=== PATIENT | male | born 1970 | race Hispanic/Latino ===

== ENCOUNTER 2019-02-17 20:33 | Emergency (ER) | payer OTHER ==
--- NOTE | 2019-02-17 20:57 | ER ---
Nurse's Notes [facility] Name: Rodolfo Gomez Age: 48 yrs Sex: Male : 1970 Arrival Date: 02/17/2019 Time: 20:37 Bed 6 Private MD: Diagnosis: Muscle spasm of back;Radiculopathy, lumbosacral region Presentation: 02/17 20:53 Presenting complaint: Patient states: 2 days ago at work he hurt his back picking up aa1 some boards. C/O L low back pain that radiates to hip. Transition of care: patient was not received from another setting of care. Onset of symptoms was February 15, 2019. Risk Assessment: Do you want to hurt yourself or someone else? Patient reports no desire to harm self or others. Initial Sepsis Screen: Does the patient meet any 2 criteria? No. Patient's initial sepsis screen is negative. Does the patient have a suspected source of infection? No. Patient's initial sepsis screen is negative. Care prior to arrival: None. 20:53 Method Of Arrival: Ambulatory aa1 20:53 Acuity: VANDANA 4 aa1 Triage Assessment: 20:56 General: Appears in no apparent distress. uncomfortable, Behavior is calm, cooperative, aa1 appropriate for age. Historical: - Allergies: 20:56 No Known Allergies; aa1 - Home Meds: 20:56 None [Active]; aa1 - PMHx: 20:56 Asthma; aa1 - PSHx: 20:56 None; aa1 - Immunization history:: Flu vaccine is not up to date. - Social history:: Smoking status: Patient/guardian denies using tobacco. - Family history:: not pertinent. - Ebola Screening: : No symptoms or risks identified at this time. - Hospitalizations: : No recent hospitalization is reported. Screenin:16 Abuse screen: Denies threats or abuse. Nutritional screening: No deficits noted. ea Tuberculosis screening: No symptoms or risk factors identified. Fall Risk None identified. Assessment: 21:16 General: Appears uncomfortable, Behavior is appropriate for age. Pain: Complains of ea pain in back. Neuro: Level of Consciousness is awake, alert, obeys commands, Oriented to person, place, time, situation. Cardiovascular: Patient's skin is warm and dry. Respiratory: Airway is patent Respiratory effort is even, unlabored, Respiratory pattern is regular, symmetrical. Derm: Skin is pink, warm \T\ dry. Musculoskeletal: Circulation, motion, and sensation intact. 21:28 Reassessment: Patient and/or family updated on plan of care and expected duration. Pain ea level reassessed. Patient is alert, oriented x 3, equal unlabored respirations, skin warm/dry/pink. Discharge instruction given to patient, verbalized the understanding of instruction. Pt left ED ambulatory tolerating well. Vital Signs: 20:56 Weight 90.72 kg; Height 5 ft. 10 in. (177.80 cm); Pain 8/10; aa1 21:00 BP 120 / 81; Pulse 71; Resp 18; Temp 97.6; Pulse Ox 95% on R/A; aa1 20:56 Body Mass Index 28.70 (90.72 kg, 177.80 cm) aa1 ED Course: 20:37 Patient arrived in ED. jg7 20:45 Kan Orozco MD is Attending Physician. rn 20:54 Triage completed. aa1 20:56 Arm band placed on right wrist. aa1 21:15 Leatha Rubio, RUSS is Primary Nurse. ea 21:16 Patient has correct armband on for positive identification. Bed in low position. Call ea light in reach. Side rails up X 1. 21:29 No provider procedures requiring assistance completed. Patient did not have IV access ea during this emergency room visit. Administered Medications: 21:15 Drug: Decadron 10 mg Route: IM; Site: right deltoid; ea 21:27 Follow up: Response: No adverse reaction ea 21:15 Drug: TORadol 30 mg Route: IM; Site: left deltoid; ea 21:27 Follow up: Response: No adverse reaction ea 21:16 Drug: Flexeril 10 mg Route: PO; ea 21:27 Follow up: Response: No adverse reaction ea Outcome: 20:57 Discharge ordered by . rn 21:29 Discharged to home ambulatory. ea 21:29 Condition: stable 21:29 Discharge instructions given to patient, Instructed on discharge instructions, follow up and referral plans. medication usage, Demonstrated understanding of instructions, follow-up care, medications, Prescriptions given X 3. 21:29 Patient left the ED. ea Signatures: Hanh Mcintosh RN RN aa1 Kan Orozco MD MD rn Antunez, Elena, RN RN ea Gutierrez, Jessica jg7 Corrections: (The following items were deleted from the chart) 21:00 21:00 BP 120 / 81; Pulse 71bpm; Resp 18bpm; Pulse Ox 97.6%; Temp 95F; aa1 aa1
--- NOTE | 2019-02-17 20:58 | EDPHYS ---
Physician Documentation [facility] Name: Rodolfo Gomez Age: 48 yrs Sex: Male : 1970 Arrival Date: 02/17/2019 Time: 20:37 Bed 6 Private MD: ED Physician Kan Orozco HPI: 02/17 20:52 This 48 yrs old Male presents to ER via Unassigned with complaints of Back rn Pain. 20:52 The patient presents with pain that is acute. The symptoms are located in the low back. rn Onset: The symptoms/episode began/occurred 2 day(s) ago. The pain radiates to the left leg. Associated signs and symptoms: Pertinent negatives: abdominal pain, chest pain, dysuria, fever, hematuria, incontinence, nausea, numbness, tingling, urinary retention, vomiting, weakness. Modifying factors: The patient symptoms are alleviated by rest, specific position, sitting, the patient symptoms are aggravated by bending, standing. Severity of symptoms: At their worst the symptoms were moderate, in the emergency department the symptoms are unchanged. The patient has experienced similar episodes in the past. Reports 2 days ago lifting boards, felt lower back pain, since then not getting better, radiates down left leg, no weakness, no bowel/bladder issues, able to walk although standing and twisting hurts more. Has had lower back problems before but not this bad. No fever, no IV drug use. . Historical: - Allergies: 20:56 No Known Allergies; aa1 - Home Meds: 20:56 None [Active]; aa1 - PMHx: 20:56 Asthma; aa1 - PSHx: 20:56 None; aa1 - Immunization history:: Flu vaccine is not up to date. - Social history:: Smoking status: Patient/guardian denies using tobacco. - Family history:: not pertinent. - Ebola Screening: : No symptoms or risks identified at this time. - Hospitalizations: : No recent hospitalization is reported. ROS: 20:52 Constitutional: Negative for fever, chills, and weight loss, Neck: Negative for injury, rn pain, and swelling, Cardiovascular: Negative for chest pain, palpitations, and edema, Respiratory: Negative for shortness of breath, cough, wheezing, and pleuritic chest pain, Abdomen/GI: Negative for abdominal pain, nausea, vomiting, diarrhea, and constipation, Back: + low back pain : Negative for injury, bleeding, discharge, and swelling, MS/Extremity: Negative for injury and deformity, Skin: Negative for injury, rash, and discoloration, Neuro: Negative for headache, weakness, numbness, tingling, and seizure. Exam: 20:52 Constitutional: This is a well developed, well nourished patient who is awake, alert, rn lactation to room withou assistance. Back: No spinal tenderness. + left perilumbar muscular spasm and tenderness MS/ Extremity: Pulses equal, no cyanosis. Neurovascular intact. Full, normal range of motion. Equal circumference. Neuro: Awake and alert, GCS 15, oriented to person, place, time, and situation. Cranial nerves II-XII grossly intact. Motor strength 5/5 in all extremities. Sensory grossly intact. Cerebellar exam normal. Normal gait. Vital Signs: 20:56 Weight 90.72 kg; Height 5 ft. 10 in. (177.80 cm); Pain 8/10; aa1 21:00 BP 120 / 81; Pulse 71; Resp 18; Temp 97.6; Pulse Ox 95% on R/A; aa1 20:56 Body Mass Index 28.70 (90.72 kg, 177.80 cm) aa1 MDM: 20:45 Patient medically screened. rn 20:52 Differential diagnosis: arthritis, chronic back pain, radiculopathy, bulging disk, rn muscle spasm. Data reviewed: vital signs, nurses notes, and as a result, I will discharge patient. Counseling: I had a detailed discussion with the patient and/or guardian regarding: the historical points, exam findings, and any diagnostic results supporting the discharge/admit diagnosis, the need for outpatient follow up, to return to the emergency department if symptoms worsen or persist or if there are any questions or concerns that arise at home. Special discussion: I discussed with the patient/guardian in detail that at this point there is no indication for admission to the hospital. It is understood, however, that if the symptoms persist or worsen the patient needs to return immediately for re-evaluation. Further emergent ED testing is not indicated at this point in time. I discussed with the patient/guardian in detail the need to arrange with the PCP or specialist further outpatient testing, MRI, Based on the history and exam findings, there is no indication for further emergent testing or inpatient evaluation. I discussed with the patient/guardian the need to see the back specialist for further evaluation of the symptoms. Administered Medications: 21:15 Drug: Decadron 10 mg Route: IM; Site: right deltoid; ea 21:27 Follow up: Response: No adverse reaction ea 21:15 Drug: TORadol 30 mg Route: IM; Site: left deltoid; ea 21:27 Follow up: Response: No adverse reaction ea 21:16 Drug: Flexeril 10 mg Route: PO; ea 21:27 Follow up: Response: No adverse reaction ea Disposition: 02/17/19 20:57 Discharged to Home. Impression: Muscle spasm of back, Radiculopathy, lumbosacral region. - Condition is Stable. - Discharge Instructions: Lumbosacral Radiculopathy, Muscle Cramps and Spasms, Back Injury Prevention, [id number], Back Exercises, [id number]. - Prescriptions for Ultram 50 mg Oral Tablet - take 1 tablet by ORAL route every 6 hours As needed; 15 tablet. Cyclobenzaprine 10 mg Oral Tablet - take 1 tablet by ORAL route every 8 hours As needed; 20 tablet. Medrol (Zak) 4 mg Oral Tablets, Dose Pack - take 1 tablet by ORAL route as directed - follow package instructions; 1 packet. - Medication Reconciliation Form, Thank You Letter, Antibiotic Education, Prescription Opioid Use, Work release form form. - Follow up: Private Physician; When: As needed; Reason: Recheck today's complaints, Re-evaluation by your physician. - Problem is an ongoing problem. - Symptoms have improved. Signatures: Hanh Mcintosh RN RN aa1 Kan Orozco MD MD rn Antunez, Elena, RN RN ea Corrections: (The following items were deleted from the chart) 21:29 20:57 02/17/2019 20:57 Discharged to Home. Impression: Muscle spasm of back; ea Radiculopathy, lumbosacral region. Condition is Stable. Forms are Medication Reconciliation Form, Thank You Letter, Antibiotic Education, Prescription Opioid Use. Follow up: Private Physician; When: As needed; Reason: Recheck today's complaints, Re-evaluation by your physician. Problem is an ongoing problem. Symptoms have improved. rn
[2019-02-17] MEDS ORDERED: dexAMETHasone 10 MG/ML VIAL ONE (21:09)
[2019-02-17] MEDS ORDERED: CYCLOBENZAPRINE 10 MG TAB ONE (21:09)
[2019-02-17] MEDS ORDERED: KETOROLAC 30 MG/ML INJ ONE (21:09)
[2019-02-18 02:00] VITALS: BP 120/81; TEMP 97.6; O2SAT 95
== END 2019-02-17 21:29 | disposition home or self-care (01) ==
LOC: ER 20:33
DX: M62.830 Muscle spasm of back (principal); M54.17 Radiculopathy, lumbosacral region
CPT/HCPCS: 96372; 99283; J1100

== ENCOUNTER 2019-05-28 16:16 | Emergency (ER) | payer OTHER ==
[2019-05-28] MEDS ORDERED: ACETAMINOPHEN 500 MG TAB ONE (16:39)
--- NOTE | 2019-05-28 17:28 | ER ---
Nurse's Notes [facility] Name: Rodolfo Gomez Age: 48 yrs Sex: Male : 1970 Arrival Date: 05/28/2019 Time: 16:17 Bed 30 Private MD: Diagnosis: Fever, unspecified Presentation: 05/27 16:20 Chief complaint: Fever, headache, and leg cramping x 2 days. TMAX 102. Coronavirus hb screen: Patient denies fever greater than 100.4F, cough, shortness of breath, or difficulty breathing. fever, mask placed on patient. Ebola Screen: No symptoms or risks identified at this time. Initial Sepsis Screen:. Risk Assessment: Do you want to hurt yourself or someone else? Patient reports no desire to harm self or others. 16:20 Method Of Arrival: Ambulatory hb 16:20 Acuity: VANDANA 3 hb 16:25 Initial Sepsis Screen: Does the patient meet any 2 criteria? RR > 20 per min. HR > 90 rr5 bpm. Yes Does the patient have a suspected source of infection? Yes: Productive cough/pneumonia If YES to both, name of provider notified: Carlene RABAGO. 16:25 Onset of symptoms was May 26, 2019. rr5 Historical: - Allergies: 16:23 No Known Allergies; hb - Home Meds: 16:23 Albuterol Inhl [Active]; hb - PMHx: 16:23 Asthma; hb - PSHx: 16:23 None; hb - Immunization history:: Adult Immunizations up to date. - Social history:: Smoking status: Patient denies any tobacco usage or history of. Screenin:30 Abuse screen: Denies threats or abuse. Denies injuries from another. Nutritional rr5 screening: No deficits noted. Tuberculosis screening: No symptoms or risk factors identified. Fall Risk None identified. Total Christie Fall Scale indicates No Risk (0-24 pts). Assessment: 16:20 General: Appears in no apparent distress. uncomfortable, Behavior is calm, cooperative, rr5 appropriate for age, Reports fever for. 16:20 Pain: Complains of pain in body Pain does not radiate. Pain currently is 8 out of 10 on rr5 a pain scale. Quality of pain is described as aching, Pain began gradually, Is intermittent. Neuro: Level of Consciousness is awake, alert, obeys commands, Oriented to person, place, time, situation, Appropriate for age. Cardiovascular: Capillary refill < 3 seconds Patient's skin is warm and dry. Respiratory: Reports small cough when i am doing my exercise Airway is patent Respiratory effort is even, unlabored, Respiratory pattern is regular, symmetrical, Denies shortness of breath. GI: No signs and/or symptoms were reported involving the gastrointestinal system. : No signs and/or symptoms were reported regarding the genitourinary system. EENT: No signs and/or symptoms were reported regarding the EENT system. Derm: Skin is intact, is healthy with good turgor, Skin temperature is warm. Musculoskeletal: Circulation, motion, and sensation intact. Capillary refill < 3 seconds. 16:28 Reassessment: ED provider order not for sepsis. rr5 17:00 Reassessment: Patient appears in no apparent distress at this time. No changes from rr5 previously documented assessment. Patient and/or family updated on plan of care and expected duration. Pain level reassessed. awaiting for results. 17:39 Reassessment: Patient appears in no apparent distress at this time. Patient is alert, rr5 oriented x 3, equal unlabored respirations, skin warm/dry/pink. discharge instruction given and explained without complaints made. Vital Signs: 16:20 BP 147 / 102; Pulse 105; Resp 18; Temp 101.2; Pulse Ox 97% on R/A; Weight 92.99 kg; hb Height 5 ft. 11 in. (180.34 cm); Pain 8/10; 17:24 BP 126 / 70; Pulse 92; Resp 19; Temp 100.6; Pulse Ox 97% on R/A; rr5 16:20 Body Mass Index 28.59 (92.99 kg, 180.34 cm) hb ED Course: 16:17 Patient arrived in ED. ag5 16:21 [facility] Iglesias [facility] kb 16:21 Kan Orozco MD is Attending Physician. kb 16:23 Triage completed. hb 16:23 Arm band placed on. hb 16:26 Db Dominguez, RUSS is Primary Nurse. rr5 16:39 Placed in gown. Bed in low position. Call light in reach. Verbal reassurance given. jp3 Pulse ox on. NIBP on. 16:39 Strep Sent. jp3 16:39 Flu Sent. jp3 16:39 Flu and/or RSV swab sent to lab. Strep swab sent to lab. Patient maintains SpO2 jp3 saturation greater than 95% on room air. 17:40 No provider procedures requiring assistance completed. Patient did not have IV access rr5 during this emergency room visit. Administered Medications: 16:38 Drug: Tylenol 1000 mg Route: PO; rr5 17:30 Follow up: Response: No adverse reaction rr5 Outcome: 17:27 Discharge ordered by MD. gonzalez 17:40 Discharged to home ambulatory. rr5 17:40 Condition: stable 17:40 Discharge instructions given to patient, Instructed on discharge instructions, follow up and referral plans. Demonstrated understanding of instructions, follow-up care. 17:43 Patient left the ED. rr5 Signatures: Carlene Iglesias, ANIMAL CARE SUPERVISOR-C ANIMAL CARE SUPERVISOR-Martha Valenzuela, RN RN David Cuba jp3 Db Dominguez RN RN rr5 Mayra Rolon 5
--- NOTE | 2019-05-28 17:29 | EDPHYS ---
Physician Documentation [facility] Name: Rodolfo Gomez Age: 48 yrs Sex: Male : 1970 Arrival Date: 05/28/2019 Time: 16:17 Bed 30 Private MD: ED Physician Kan Orozco HPI: 05/27 16:47 This 48 yrs old Male presents to ER via Ambulatory with complaints of Fever. kb 16:47 The patient reports fever, that was measured at 102 degrees Fahrenheit, with an kb emergency department temperature of 101.2 degrees Fahrenheit. Onset: The symptoms/episode began/occurred yesterday. Modifying factors: there are no obvious modifying factors. Associated signs and symptoms: Pertinent positives: headache, myalgias, Pertinent negatives: chills, cough, runny nose, sinus congestion, shortness of breath. Severity of symptoms: At their worst the symptoms were mild moderate in the emergency department the symptoms are unchanged. The patient has not experienced similar symptoms in the past. The patient has not recently seen a physician. Pt reports he has had fever and headache since yesterday. Did his morning breathing exercises and started having muscle cramps. Denies cough, congestion, sore throat. . Son reports everyone has these symptoms at home (him, mom, sister). Mom and sister tested for COVID yesterday, results pending. Historical: - Allergies: 16:23 No Known Allergies; hb - Home Meds: 16:23 Albuterol Inhl [Active]; hb - PMHx: 16:23 Asthma; hb - PSHx: 16:23 None; hb - Immunization history:: Adult Immunizations up to date. - Social history:: Smoking status: Patient denies any tobacco usage or history of. ROS: 16:47 ENT: Negative for injury, pain, and discharge, Neck: Negative for injury, pain, and kb swelling, Cardiovascular: Negative for chest pain, palpitations, and edema, Respiratory: Negative for shortness of breath, cough, wheezing, and pleuritic chest pain, Abdomen/GI: Negative for abdominal pain, nausea, vomiting, diarrhea, and constipation, Back: Negative for injury and pain, MS/Extremity: Negative for injury and deformity, Skin: Negative for injury, rash, and discoloration. 16:47 Constitutional: Positive for body aches, fever. 16:47 Neuro: Positive for headache, Negative for altered mental status, dizziness, gait disturbance, hearing loss, loss of consciousness, numbness, seizure activity, speech changes, syncope, near syncope, tingling, tinnitus, tremor, visual changes, weakness. Exam: 16:47 Constitutional: This is a well developed, well nourished patient who is awake, alert, kb and in no acute distress. Head/Face: Normocephalic, atraumatic. ENT: Nares patent. No nasal discharge, no septal abnormalities noted. Tympanic membranes are normal and external auditory canals are clear. Oropharynx with no redness, swelling, or masses, exudates, or evidence of obstruction, uvula midline. Mucous membranes moist. Neck: Trachea midline, no thyromegaly or masses palpated, and no cervical lymphadenopathy. Supple, full range of motion without nuchal rigidity, or vertebral point tenderness. No Meningismus. Chest/axilla: Normal chest wall appearance and motion. Nontender with no deformity. No lesions are appreciated. Cardiovascular: Regular rate and rhythm with a normal S1 and S2. No gallops, murmurs, or rubs. Normal PMI, no JVD. No pulse deficits. Respiratory: Lungs have equal breath sounds bilaterally, clear to auscultation and percussion. No rales, rhonchi or wheezes noted. No increased work of breathing, no retractions or nasal flaring. Abdomen/GI: Soft, non-tender, with normal bowel sounds. No distension or tympany. No guarding or rebound. No evidence of tenderness throughout. Skin: Warm, dry with normal turgor. Normal color with no rashes, no lesions, and no evidence of cellulitis. MS/ Extremity: Pulses equal, no cyanosis. Neurovascular intact. Full, normal range of motion. Neuro: Awake and alert, GCS 15, oriented to person, place, time, and situation. Cranial nerves II-XII grossly intact. Motor strength 5/5 in all extremities. Sensory grossly intact. Cerebellar exam normal. Normal gait. Vital Signs: 16:20 BP 147 / 102; Pulse 105; Resp 18; Temp 101.2; Pulse Ox 97% on R/A; Weight 92.99 kg; hb Height 5 ft. 11 in. (180.34 cm); Pain 8/10; 17:24 BP 126 / 70; Pulse 92; Resp 19; Temp 100.6; Pulse Ox 97% on R/A; rr5 16:20 Body Mass Index 28.59 (92.99 kg, 180.34 cm) hb MDM: 16:26 Patient medically screened. kb 16:52 Data reviewed: vital signs, nurses notes. Data interpreted: Pulse oximetry: on room air kb is 97 %. Interpretation: normal. 17:20 Counseling: I had a detailed discussion with the patient and/or guardian regarding: the kb historical points, exam findings, and any diagnostic results supporting the discharge/admit diagnosis, lab results, the need for outpatient follow up, a family practitioner, to return to the emergency department if symptoms worsen or persist or if there are any questions or concerns that arise at home. 17:28 ED course: Pt has normal physical exam. No resp distress. Lungs clear bilaterally. . kb 05/27 16:32 Order name: Flu; Complete Time: 17:06 kb 05/27 16:32 Order name: Strep; Complete Time: 17:06 kb 05/27 17:06 Order name: Throat Culture EDNV 05/27 17:21 Order name: Vital Signs; Complete Time: 17:24 kb Administered Medications: 16:38 Drug: Tylenol 1000 mg Route: PO; rr5 17:30 Follow up: Response: No adverse reaction rr5 Disposition: 18:11 Co-signature as Attending Physician, Kan Orozco MD. rn Disposition: 05/28/19 17:27 Discharged to Home. Impression: Fever, unspecified. - Condition is Stable. - Discharge Instructions: Viral Respiratory Infection, [id number], Fever, Adult, [id number]. - Medication Reconciliation Form, Thank You Letter, Antibiotic Education, Prescription Opioid Use form. - Follow up: Emergency Department; When: As needed; Reason: Worsening of condition. Follow up: Private Physician; When: 2 - 3 days; Reason: Recheck today's complaints, Continuance of care, Re-evaluation by your physician. Signatures: Dispatcher [employer] [facility] Carlene Iglesias, TILE MECHANIC-C TILE MECHANIC-Kan Garcia MD MD rn Baxter, Heather, RN RN Db Stephenson RN RN rr5 Corrections: (The following items were deleted from the chart) 17:43 17:27 05/28/2019 17:27 Discharged to Home. Impression: Fever, unspecified. Condition is rr5 Stable. Forms are Medication Reconciliation Form, Thank You Letter, Antibiotic Education, Prescription Opioid Use. Follow up: Emergency Department; When: As needed; Reason: Worsening of condition. Follow up: Private Physician; When: 2 - 3 days; Reason: Recheck today's complaints, Continuance of care, Re-evaluation by your physician. kb
[2019-05-28 17:53] VITALS: O2SAT 97
[2019-05-28 17:54] VITALS: BP 126/70; TEMP 100.6
== END 2019-05-28 17:43 | disposition home or self-care (01) ==
LOC: ER 16:16
DX: R50.9 Fever, unspecified (principal); J45.909 Unspecified asthma, uncomplicated
CPT/HCPCS: 87070; 87081; 87804; 99284

== ENCOUNTER 2020-09-02 22:37 | Emergency (ER) | payer OTHER ==
--- OUTSIDE RECORDS SUMMARY | 2020-09-02 22:41 | XMS REPORT | Continuity of Care Document ---
:1970 Author Organization [facility] t Address [address] [place] [address] Care Team Providers Name Role Phone Only, [facility] Test Attending Clinician Unavailable Doctor Unassigned, Name Attending Clinician Unavailable Problems This patient has no known problems. Allergies, Adverse Reactions, Alerts This patient has no known allergies or adverse reactions. Medications This patient has no known medications. Procedures This patient has no known procedures. Encounters Start End Encounter Admission Attending Care Care Encounter Source Date/Time Date/Time Type Type Clinicians Facility Department ID 2020-03-20 2020-03-20 Laboratory Only, [facility] [id number] 12:14:48 12:29:48 Only Test Kimberly [id number] [place] [id number] [place] [id number] 2020-03-20 2020-03-20 Orders Doctor ROBBIE [id number] 00:00:00 00:00:00 Only UnassignedJAMIE [id number] [place] [facility] [id number] Results This patient has no known results.
--- NOTE | 2020-09-03 01:26 | EDPHYS ---
Physician Documentation [facility] Name: Rodolfo Gomez Age: 49 yrs Sex: Male : 1970 Arrival Date: 09/02/2020 Time: 22:40 Bed 26 Private MD: ED Physician Saul Koch HPI: 09/03 01:22 This 49 yrs old Male presents to ER via Ambulatory with complaints of Low Back ma2 Pain. 01:22 The patient presents with pain that is chronic, with no known mechanism of injury. The ma2 pain does not radiate. Associated signs and symptoms: Pertinent negatives: constipation, fever, hematuria, incontinence. Severity of symptoms: At their worst the symptoms were mild, in the emergency department the symptoms are unchanged. The patient has experienced similar episodes in the past. left lower back pain s/p lifting heavy objects and bending, no trauma or fever no weakness or change in urination. Historical: - Allergies: 09/02 22:49 No Known Allergies; bs2 - PMHx: 22:49 Asthma; bs2 - PSHx: 22:49 Tonsillectomy; bs2 - Immunization history:: Client reports receiving the 2nd dose of the Covid vaccine, Flu vaccine is not up to date. - Social history:: Smoking status: Patient denies any tobacco usage or history of. - Family history:: not pertinent. ROS: 09/03 01:22 Constitutional: Negative for fever, chills, and weight loss. ma2 All other systems are negative. Exam: 01:22 Constitutional: This is a well developed, well nourished patient who is awake, alert, ma2 and in no acute distress. Head/Face: Normocephalic, atraumatic. Eyes: Pupils equal round and reactive to light, extra-ocular motions intact. Lids and lashes normal. Conjunctiva and sclera are non-icteric and not injected. Cornea within normal limits. Periorbital areas with no swelling, redness, or edema. ENT: Nares patent. No nasal discharge, no septal abnormalities noted. Tympanic membranes are normal and external auditory canals are clear. Oropharynx with no redness, swelling, or masses, exudates, or evidence of obstruction, uvula midline. Mucous membranes moist. Neck: Trachea midline, no thyromegaly or masses palpated, and no cervical lymphadenopathy. Supple, full range of motion without nuchal rigidity, or vertebral point tenderness. No Meningismus. Chest/axilla: Normal chest wall appearance and motion. Nontender with no deformity. No lesions are appreciated. Cardiovascular: Regular rate and rhythm with a normal S1 and S2. No gallops, murmurs, or rubs. Normal PMI, no JVD. No pulse deficits. Respiratory: Lungs have equal breath sounds bilaterally, clear to auscultation and percussion. No rales, rhonchi or wheezes noted. No increased work of breathing, no retractions or nasal flaring. Abdomen/GI: Soft, non-tender, with normal bowel sounds. No distension or tympany. No guarding or rebound. No evidence of tenderness throughout. Skin: Warm, dry with normal turgor. Normal color with no rashes, no lesions, and no evidence of cellulitis. MS/ Extremity: Pulses equal, no cyanosis. Neurovascular intact. Full, normal range of motion. Neuro: Awake and alert, GCS 15, oriented to person, place, time, and situation. Cranial nerves II-XII grossly intact. Motor strength 5/5 in all extremities. Sensory grossly intact. Cerebellar exam normal. Normal gait. 01:22 Back: pain, that is very mild, ROM is painful, normal spinal alignment noted, CVA tenderness, that is mild, is noted on the left, vertebral tenderness, is not appreciated, muscle spasm, is appreciated in the left low back, Straight leg raises: of both lower extremities does not illicit pain. Vital Signs: 09/02 22:47 BP 122 / 79; Pulse 84; Resp 15; Temp 98.8(T); Pulse Ox 99% on R/A; Weight 108.41 kg bs2 (R); Height 5 ft. 10 in. (177.80 cm) (R); Pain 7/10; 22:47 Body Mass Index 34.29 (108.41 kg, 177.80 cm) bs2 MDM: 09/03 00:41 Patient medically screened. ma2 01:22 Differential diagnosis: strain, fracture, sciatica. Data reviewed: vital signs, nurses ma2 notes. Counseling: I had a detailed discussion with the patient and/or guardian regarding: the historical points, exam findings, and any diagnostic results supporting the discharge/admit diagnosis, the presence of at least one elevated blood pressure reading (>120/80) during this emergency department visit, the need for outpatient follow up. Response to treatment: the patient's symptoms have markedly improved after treatment. ED course: ptn declined xr . Administered Medications: 01:24 Drug: TORadol (ketorolac) 60 mg Route: IM; Site: right gluteus; em 01:51 Follow up: Response: No adverse reaction; Marked relief of symptoms; Pain is decreased em 01:24 Drug: Valium (diazepam) 10 mg Route: PO; em 01:51 Follow up: Response: No adverse reaction; Marked relief of symptoms; Pain is decreased em 01:25 Drug: MethylPREDNISolone Sodium Succinate 125 mg Route: IM; Site: left gluteus; em 01:51 Follow up: Response: No adverse reaction; Marked relief of symptoms; Pain is decreased em Disposition Summary: 09/03/20 01:25 Discharge Ordered Location: Home ma2 Condition: Stable ma2 Diagnosis - Low back pain ma2 Followup: ma2 - With: Private Physician - When: Tomorrow - Reason: Continuance of care Discharge Instructions: - Discharge Summary Sheet ma2 - Acute Back Pain, Adult ma2 Forms: - Work release form em - Medication Reconciliation Form ma2 - Thank You Letter ma2 - Antibiotic Education ma2 - Prescription Opioid Use ma2 Prescriptions: - Cyclobenzaprine 10 mg Oral Tablet - take 1 tablet by ORAL route every 8 hours As needed; 30 tablet; Refills: 0, ma2 Product Selection Permitted - Diclofenac Sodium 75 mg Oral Tablet Sustained Release - take 1 tablet by ORAL route 2 times per day; 30 tablet; Refills: 0, Product ma2 Selection Permitted - Medrol (Zak) 4 mg Oral Tablets, Dose Pack - take 1 tablet by ORAL route as directed - follow package instructions; 1 ma2 packet; Refills: 0, Product Selection Permitted Signatures: Edwardo Hernandez RN RN em Saul Koch MD MD ma2 Feli Calhoun bs2 Corrections: (The following items were deleted from the chart) 09/02 22:50 22:49 PSHx: None; bs2 bs2
--- NOTE | 2020-09-03 01:26 | ER ---
Nurse's Notes [facility] Name: Rodolfo Gomez Age: 49 yrs Sex: Male : 1970 Arrival Date: 09/02/2020 Time: 22:40 Bed 26 Private MD: Diagnosis: Low back pain Presentation: 09/02 22:47 Chief complaint: Patient states: low back pain that shoots around LT side , pain down bs2 left leg. Coronavirus screen: Client denies travel out of the [place] in the last 14 days. At this time, the client does not indicate any symptoms associated with coronavirus-19. Ebola Screen: Patient negative for fever greater than or equal to 101.5 degrees Fahrenheit, and additional compatible Ebola Virus Disease symptoms Patient denies exposure to infectious person. Patient denies travel to an Ebola-affected area in the 21 days before illness onset. No symptoms or risks identified at this time. Initial Sepsis Screen: Does the patient meet any 2 criteria? No. Patient's initial sepsis screen is negative. Does the patient have a suspected source of infection? No. Patient's initial sepsis screen is negative. Risk Assessment: Do you want to hurt yourself or someone else? Patient reports no desire to harm self or others. Onset of symptoms was September 02, 2020. 22:47 Method Of Arrival: Ambulatory bs2 22:47 Acuity: VANDANA 4 bs2 Triage Assessment: 22:49 General: Appears distressed, uncomfortable, slender, well groomed, well developed, well bs2 nourished, Behavior is calm, cooperative, appropriate for age. Pain: Complains of pain in lumbar area, sacrum and left low back. Historical: - Allergies: 22:49 No Known Allergies; bs2 - PMHx: 22:49 Asthma; bs2 - PSHx: 22:49 Tonsillectomy; bs2 - Immunization history:: Client reports receiving the 2nd dose of the Covid vaccine, Flu vaccine is not up to date. - Social history:: Smoking status: Patient denies any tobacco usage or history of. - Family history:: not pertinent. Screenin/01 00:35 Abuse screen: Denies threats or abuse. Nutritional screening: No deficits noted. em Tuberculosis screening: No symptoms or risk factors identified. Fall Risk None identified. Vital Signs: 09/02 22:47 BP 122 / 79; Pulse 84; Resp 15; Temp 98.8(T); Pulse Ox 99% on R/A; Weight 108.41 kg bs2 (R); Height 5 ft. 10 in. (177.80 cm) (R); Pain 7/10; 22:47 Body Mass Index 34.29 (108.41 kg, 177.80 cm) bs2 ED Course: 22:40 Patient arrived in ED. bp1 22:49 Triage completed. bs2 22:49 Arm band placed on left wrist. bs2 23:39 Edwardo Hernandez, RUSS is Primary Nurse. em 09/03 00:41 Saul Koch MD is Attending Physician. ma2 01:38 No provider procedures requiring assistance completed. Patient did not have IV access em during this emergency room visit. Administered Medications: 01:24 Drug: TORadol (ketorolac) 60 mg Route: IM; Site: right gluteus; em 01:51 Follow up: Response: No adverse reaction; Marked relief of symptoms; Pain is decreased em 01:24 Drug: Valium (diazepam) 10 mg Route: PO; em 01:51 Follow up: Response: No adverse reaction; Marked relief of symptoms; Pain is decreased em 01:25 Drug: MethylPREDNISolone Sodium Succinate 125 mg Route: IM; Site: left gluteus; em 01:51 Follow up: Response: No adverse reaction; Marked relief of symptoms; Pain is decreased em Outcome: 01:25 Discharge ordered by . ma2 01:52 Discharged to home ambulatory, with family. em 01:52 Condition: improved 01:52 Discharge instructions given to patient, family, Instructed on discharge instructions, follow up and referral plans. medication usage, Demonstrated understanding of instructions, follow-up care, medications, Prescriptions given X 3. 01:52 Patient left the ED. em Signatures: Edwardo Hernandez RN RN em Saul Koch MD MD ma2 [place]en Carroll Bridget bs2 Corrections: (The following items were deleted from the chart) 09/02 22:50 22:49 PSHx: None; bs2 bs2
[2020-09-03] MEDS ORDERED: DIAZEPAM 5 MG TABLET ONE (01:40)
[2020-09-03] MEDS ORDERED: KETOROLAC 30 MG/ML INJ ONE (01:40)
[2020-09-03] MEDS ORDERED: METHYLPREDNISOLONE 125 MG INJ ONE (01:40)
[2020-09-03 01:57] VITALS: BP 122/79; TEMP 98.8; O2SAT 99
== END 2020-09-03 01:52 | disposition home or self-care (01) ==
LOC: ER 22:37
DX: M54.5 Low back pain (principal)
CPT/HCPCS: 96372; 99283; J2930

== ENCOUNTER 2022-02-16 20:20 | Emergency (ER) | payer OTHER ==
--- OUTSIDE RECORDS SUMMARY | 2022-02-16 20:23 | XMS REPORT | Continuity of Care Document ---
:[address] [facility] t Address [address] [place] [address] Care Team Providers Name Role Phone Naima Gaviria MD Primary Care Physician [phone] PHIL GOTTI Attending Clinician Unavailable BLACK SHER Attending Clinician Unavailable Black Sher MD Attending Clinician NAIMA GAVIRIA Attending Clinician Unavailable FARIHA MELTON Attending Clinician Unavailable Only, Adc Test Attending Clinician Unavailable Doctor Unassigned, Kiln Attending Clinician Unavailable Payers Payer Name Policy Type Policy Number Effective Date Expiration Date [place] [address] [id number] 2020 00:00:00 [facility] [id number] 2020 PPO 00:00:00 Problems Condition Condition Condition Status Onset Resolution Last Treating Co mments Source Name Details Category Date Date Treatment Clinician Date Mild Mild Disease Active 2020-03 Lisa intermitte intermitte 2-28 Se ybold nt asthma nt asthma 00:00: without without 00 complicati complicati on on Allergies, Adverse Reactions, Alerts Allergy Allergy Status Severity Reaction(s) Onset Inactive Treating Comm ents Source Name Type Date Date Clinician NO KNOWN Drug Active [facility]ERGIE Class [facility] Social History Social Habit Start Date Stop Date Quantity Comments Source Sex Ass[birth year] At [birth year] Lisa Se ybold 00:00:00 00:00:00 Smoking Status Start Date Stop Date Source Never smoked tobacco Lisa Seyb old Medications Ordered Filled Start Stop Current Ordering Indication Dosage Frequency Signature Comments Components Source Medication Medication Date Date Medication? Clinician (SIG) Name Name Albuterol 2020-03 Yes [id number] 2{puff} Q4H Inhale 2 Lisa HFA 108 (90 2-28 puffs into Se ybold Base) 00:00: the lungs MCG/ACT IN 00 every 4 AERS hours as needed for wheezing Azithromyci 2020-03- No [id number] Take 2 Lisa n 250 MG 2- tablets by Seyb old oral Tablet 00:00: 05:59 mouth on 00 :00 day 1 then 1 tablet by mouth daily for 4 days thereafter . Albuterol 2020- No [id number] 2{puff} Q4H Inhale 2 Lisa HFA 108 (90 9 12-28 puffs into S eybold Base) 00:00: 00:00 the lungs MCG/ACT IN 00 :00 every 4 AERS hours as needed for wheezing methylPREDN 2020- No [id number] 1{sudeep} Take 1 sudeep Lisa ISolone 4 11-05 by mouth Seybo ld MG oral 00:00: 00:00 See Admin Tablet 00 :00 Instructio Therapy ns Use as Pack directed Procedures This patient has no known procedures. Encounters Start End Encounter Admission Attending Care Care Encounter Source Date/Time Date/Time Type Type Clinicians Facility Department ID 2022-01-04 2022-01-04 Outpatient DIOGO LIND [id number] Zahra Cook 15:42:16 15:42:16 1101 F Chai 2021-03-08 2021-03-08 Outpatient LISA GOTTI [id number] Lisa 00:00:00 00:00:00 PHIL Seybol d 2021-03-04 2021-03-04 Outpatient BLACK SHER [id number] Lisa 00:00:00 00:00:00 Seybol d 2021-03-04 2021-03-04 Outpatient BLACK SHER [id number] Lisa 00:00:00 00:00:00 Seybol d 2021-03-022021-03-02 [facility] Black Sher [id number] Lisa 10:00:00 10:00:00 ne Genet Iglesias [id number] Se annika [id number] 2020-11-06 2020-11-06 Outpatient LISA GAVIRIA [id number] Lisa 00:00:00 00:00:00 NAIMA badillo 2020-11-05 2020-11-05 Outpatient LISA GAVIRIA [id number] Lisa 09:15:00 09:15:00 NAIMA badillo 2020-07-01 2020-07-01 Outpatient R [facility] [id number] Univers 10:30:00 10:30:00 FARIHA [facility] 2020-06-03 2020-06-03 Outpatient [facility] [id number] Univers 10:30:00 10:30:00 [facility] 2020-03-20 2020-03-20 Outpatient R [facility] [id number] Univers 15:30:00 15:30:00 [facility] 2020-03-20 2020-03-20 Laboratory Only, [facility] [id number] 12:14:48 12:29:48 Only Test [place] [id number] [place] [id number] [place] [id number] 2020-03-20 2020-03-20 Orders Doctor ROBBIE [id number] 00:00:00 00:00:00 Only Unassigned, JAMIE [id number] Kiln [facility] [id number] Results This patient has no known results.
[2022-02-16] MEDS ORDERED: LIDOCAINE 4% PATCH ONE (21:31)
[2022-02-16] MEDS ORDERED: dexAMETHasone 10 MG/ML VIAL ONE (21:31)
--- NOTE | 2022-02-16 21:49 | EDPHYS ---
Physician Documentation [facility] Name: Rodolfo Gomez Age: 51 yrs Sex: Male : 1970 Arrival Date: 02/16/2022 Time: 20:24 Bed 27 Private MD: ED Physician Luis Felipe Richmond HPI: 02/16 21:43 This 51 yrs old Male presents to ER via Ambulatory with complaints of Low Back kb Pain. 21:43 The patient presents with pain that is acute, with no known mechanism of injury. The kb symptoms are located in the low back. The pain radiates to the left hamstring. The problem was sustained without known cause. Onset: The symptoms/episode began/occurred last week, and became worse. Modifying factors: The patient symptoms are alleviated by nothing, the patient symptoms are aggravated by standing. Associated signs and symptoms: Pertinent positives: none. Severity of symptoms: At their worst the symptoms were moderate, in the emergency department the symptoms are unchanged. The patient has not experienced similar symptoms in the past. The patient has not recently seen a physician. Pt reports low back pain that started after a flight. States the seat was very uncomfortable and the back pain started then. Today he wore a toolbelt and worked for 10 hours making the pain worse. Reports pain radiates down left thigh. Denies numbness, tingling, urinary symptoms. States pain is worse when standing . Historical: - PMHx: 20:53 Asthma; jh5 - PSHx: 20:53 Tonsillectomy; 5 - Immunization history:: Adult Immunizations up to date. - Social history:: Smoking status: Patient denies any tobacco usage or history of. ROS: 21:47 Constitutional: Negative for fever, chills, and weight loss. kb 21:47 Back: Positive for pain with movement. 21:47 All other systems are negative. Exam: 21:47 Constitutional: This is a well developed, well nourished patient who is awake, alert, kb and in no acute distress. Head/Face: Normocephalic, atraumatic. ENT: Moist Mucous membranes Cardiovascular: Regular rate and rhythm with a normal S1 and S2. No gallops, murmurs, or rubs. No pulse deficits. Respiratory: Respirations even and unlabored. No increased work of breathing. Talking in full sentences Abdomen/GI: Soft, non-tender. No distention Back: No spinal tenderness. No costovertebral tenderness. Full range of motion. Skin: Warm, dry with normal turgor. Normal color. MS/ Extremity: Pulses equal, no cyanosis. Neurovascular intact. Full, normal range of motion. Neuro: Awake and alert, GCS 15, oriented to person, place, time, and situation. Moves all extremities. Normal gait. Psych: Awake, alert, with orientation to person, place and time. Behavior, mood, and affect are within normal limits. 21:47 Back: no tenderness upon exam. Vital Signs: 20:52 BP 143 / 82; Pulse 73; Resp 16; Temp 98.6; Pulse Ox 100% ; Weight 94.35 kg; Height 5 [facility] ft. 9 in. (175.26 cm); Pain 8/10; 21:42 BP 105 / 77; Pulse 76; Resp 18; Pulse Ox 100% on R/A; em6 20:52 Body Mass Index 30.72 (94.35 kg, 175.26 cm) [facility] MDM: 20:58 Patient medically screened. kb 21:47 Data reviewed: vital signs, nurses notes. Data interpreted: Pulse oximetry: on room air kb is 100 %. Interpretation: normal. Counseling: I had a detailed discussion with the patient and/or guardian regarding: the historical points, exam findings, and any diagnostic results supporting the discharge/admit diagnosis, the need for outpatient follow up, a family practitioner, to return to the emergency department if symptoms worsen or persist or if there are any questions or concerns that arise at home. Administered Medications: 21:40 Drug: Lidoderm Patch 5 % (700 mg/patch) 1 patches Route: Topical; Site: affected area; em6 22:00 Follow up: Response: No adverse reaction em6 21:41 Drug: Decadron (dexamethasone) 10 mg Route: IM; Site: left gluteus; em6 22:00 Follow up: Response: No adverse reaction em6 Disposition: 02/17 00:40 Co-signature as Attending Physician, Luis Felipe Richmond MD I agree with the assessment and kdr plan of care. Disposition Summary: 02/16/22 21:48 Discharge Ordered Location: Home kb Condition: Stable kb Diagnosis - Low back pain kb Followup: kb - With: Emergency Department - When: As needed - Reason: Worsening of condition Followup: kb - With: Private Physician - When: 2 - 3 days - Reason: Recheck today's complaints, Continuance of care, Re-evaluation by your physician Discharge Instructions: - Discharge Summary Sheet kb - Musculoskeletal Pain kb Forms: - Medication Reconciliation Form kb - Thank You Letter kb - Antibiotic Education kb - Prescription Opioid Use kb Prescriptions: - Prednisone 20 mg Oral Tablet - take 1 tablet by ORAL route once daily for 5 days; 5 tablet; Refills: 0, kb Product Selection Permitted - Cyclobenzaprine 10 mg Oral Tablet - take 1 tablet by ORAL route every 8 hours As needed; 15 tablet; Refills: 0, kb Product Selection Permitted Signatures: Carlene Iglesias, KADE[employer] TECH[employer] SYSTEMS ANALYST-Luis Felipe Correa MD MD kdr Rees, Jessica RN RN jh5 Soco Freedman RN RN em6 Corrections: (The following items were deleted from the chart) 02/16 21:47 21:43 Pt reports low back pain that started after a flight. States the seat was very kb uncomfortable and the back pain started then. Today he wore a toolbelt and worked for 10 hours making the pain worse. Reports pain radiates down left thigh. Denies numbness, tingling. . kb
--- NOTE | 2022-02-16 21:49 | ER ---
Nurse's Notes [facility] Name: Rodolfo Gomez Age: 51 yrs Sex: Male : 1970 Arrival Date: 02/16/2022 Time: 20:24 Bed 27 Private MD: Diagnosis: Low back pain Presentation: 02/16 20:52 Chief complaint: Patient states: low back pain for several days; worse today after jh5 weaing tool belt x10 hours. worse when standing. Coronavirus screen: Vaccine status: Patient reports receiving the 2nd dose of the covid vaccine. Client denies travel out of the [place] in the last 14 days. Ebola Screen: Patient negative for fever greater than or equal to 101.5 degrees Fahrenheit, and additional compatible Ebola Virus Disease symptoms Patient denies exposure to infectious person. Patient denies travel to an Ebola-affected area in the 21 days before illness onset. Initial Sepsis Screen: Does the patient meet any 2 criteria? No. Patient's initial sepsis screen is negative. Does the patient have a suspected source of infection? No. Patient's initial sepsis screen is negative. Risk Assessment: Do you want to hurt yourself or someone else? Patient reports no desire to harm self or others. 20:52 Method Of Arrival: Ambulatory [facility] 20:52 Acuity: VANDANA 3 jh5 21:33 Onset of symptoms was February 15, 2022. em6 Triage Assessment: 20:53 General: Appears in no apparent distress. uncomfortable, slender, well groomed, well jh5 developed, Behavior is calm, cooperative, appropriate for age. Pain: Complains of pain in back. Historical: - PMHx: 20:53 Asthma; jh5 - PSHx: 20:53 Tonsillectomy; jh5 - Immunization history:: Adult Immunizations up to date. - Social history:: Smoking status: Patient denies any tobacco usage or history of. Screenin:33 Abuse screen: Denies threats or abuse. Nutritional screening: No deficits noted. em6 Tuberculosis screening: No symptoms or risk factors identified. Fall Risk Total Christie Fall Scale indicates No Risk (0-24 pts). 21:42 [facility] ED Fall Risk Assessment (Adult) History of falling in the last 3 months, em6 including since admission No falls in past 3 months (0 pts) Confusion or Disorientation No (0 pts) Intoxicated or Sedated No (0 pts) Impaired Gait Yes (1 pt) Mobility Assist Device Used Yes (1 pt) Altered Elimination No (0 pt) Score/Fall Risk Level 0 - 2 = Low Risk Oriented to surroundings, Maintained a safe environment, Educated pt \T\ family on fall prevention, incl call for assistance when getting out of bed, Assessed \T\ reinforced patient's understanding of fall precautions, Hourly rounding (assess needs \T\ fall precautionary measures) done, Used ambulatory aids as needed (educated on \T\ assisted with). Assessment: 21:41 General: Appears uncomfortable, Behavior is cooperative. Pain: Complains of pain in em6 back Pain does not radiate. Pain currently is 10 out of 10 on a pain scale. Quality of pain is described as sharp, stabbing. Neuro: Level of Consciousness is awake, alert, obeys commands, Oriented to person, place, time, situation. Cardiovascular: Patient's skin is warm and dry. Respiratory: Airway is patent Respiratory effort is even, unlabored, Respiratory pattern is regular, symmetrical. GI: No signs and/or symptoms were reported involving the gastrointestinal system. : No signs and/or symptoms were reported regarding the genitourinary system. EENT: No signs and/or symptoms were reported regarding the EENT system. Derm: No signs and/or symptoms reported regarding the dermatologic system. Musculoskeletal: Circulation, motion, and sensation intact. Vital Signs: 20:52 BP 143 / 82; Pulse 73; Resp 16; Temp 98.6; Pulse Ox 100% ; Weight 94.35 kg; Height 5 [facility] ft. 9 in. (175.26 cm); Pain 8/10; 21:42 BP 105 / 77; Pulse 76; Resp 18; Pulse Ox 100% on R/A; em6 20:52 Body Mass Index 30.72 (94.35 kg, 175.26 cm) 5 ED Course: 20:24 Patient arrived in ED. jj6 20:37 Carlene Iglesias FNP-C is [facility] kb 20:37 Luis Felipe Richmond MD is Attending Physician. kb 20:53 Triage completed. 5 20:53 Arm band placed on left wrist. 5 21:25 Soco Freedman, RUSS is Primary Nurse. em6 21:33 Bed in low position. Call light in reach. Side rails up X 1. Pulse ox on. NIBP on. Warm em6 blanket given. 21:59 No provider procedures requiring assistance completed. Patient did not have IV access em6 during this emergency room visit. Administered Medications: 21:40 Drug: Lidoderm Patch 5 % (700 mg/patch) 1 patches Route: Topical; Site: affected area; em6 22:00 Follow up: Response: No adverse reaction em6 21:41 Drug: Decadron (dexamethasone) 10 mg Route: IM; Site: left gluteus; em6 22:00 Follow up: Response: No adverse reaction em6 Medication: 21:51 VIS not applicable for this client. em6 Outcome: 21:48 Discharge ordered by . kb 22:00 Discharged to home ambulatory. em6 22:00 Condition: stable 22:00 Discharge instructions given to patient, Instructed on discharge instructions, follow up and referral plans. medication usage, Demonstrated understanding of instructions, follow-up care, medications, Prescriptions given X 2. 22:00 Patient left the ED. em6 Signatures: Carlene Iglesias, EDUCATION PROGRAM COORDINATOR-C EDUCATION PROGRAM COORDINATOR-CkFatuma Burgess jj6 Agnes Estevez, RN RN jh5 Soco Freedman RN RN em6
[2022-02-16 22:22] VITALS: TEMP 98.6; O2SAT 100
[2022-02-16 22:24] VITALS: BP 105/77
== END 2022-02-16 22:00 | disposition home or self-care (01) ==
LOC: ER 20:20
DX: M54.50 Low back pain, unspecified (principal)
CPT/HCPCS: J2001; J1100

== ENCOUNTER 2022-08-08 14:21 | Emergency (ER) | payer OTHER ==
--- OUTSIDE RECORDS SUMMARY | 2022-08-08 14:51 | XMS REPORT | Continuity of Care Document ---
:1970 Author Organization [facility] t Address [address] [place] [address] [address] [place] [address] Care Team Providers Name Role Phone Everette HUGHES, Naima Iqbal Primary Care Physician [phone] RADIOLOGY Attending Clinician Unavailable PHIL GOTTI Attending Clinician Unavailable BLACK SHER Attending Clinician Unavailable Black Sher MD Attending Clinician NAIMA BOONE Attending Clinician Unavailable FARIHA MELTON Attending Clinician Unavailable Only, Adc Test Attending Clinician Unavailable Doctor Unassigned, [place] Attending Clinician Unavailable Payers Payer Name Policy Type Policy Number Effective Date Expiration Date [id number] P[facility] 00:00:00 [place] [id number] 2020 00:00:00 Problems Condition Condition Condition Status Onset [...] Date Date Clinician NO KNOWN Drug Active [facility] ALLERGIE Class ity of [facility] Social History Social Habit Start Date Stop Date Quantity Comments Source Sex Assigned At [birth year] Lisa Se ybold 00:00:00 00:00:00 Smoking Status Start Date Stop Date Source Never smoked tobacco Lisa Seyb old Medications Ordered Filled Start Stop Current Ordering Indication Dosage Frequency Signature Comments Components Source Medication Medication Date Date Medication? Clinician (SIG) Name Name Albuterol 2020-03 Yes [id number] 2{puff} Q4H Inhale 2 Lisa HFA 108 (90 2-28 puffs into Se ybold Base) 00:00: the lungs MCG/ACT IN 00 every 4 AERS hours as needed for wheezing Azithromyci 2020-03- No [id number] Take 2 Lisa n 250 MG 2- tablets by Seyb old oral Tablet 00:00: 05:59 mouth on 00 :00 day 1 then 1 tablet by mouth daily for 4 days thereafter . Albuterol 2020- No [id number] 2{puff} Q4H Inhale 2 Lisa HFA 108 (90 9 12-28 puffs into S eybold Base) 00:00: 00:00 the lungs MCG/ACT IN 00 :00 every 4 AERS hours as needed for wheezing methylPREDN 2020- No [id number] 1{sudeep} Take 1 sudeep Lisa ISolone 4 11-05 by mouth Seybo ld MG oral 00:00: 00:00 See Admin Tablet 00 :00 Instructio Therapy ns Use as Pack directed Procedures This patient has no known procedures. Encounters Start End Encounter Admission Attending Care Care Encounter Source Date/Time Date/Time Type Type Clinicians Facility Department ID 2022-03-02 2022-03-02 Outpatient R RADIOLOGY [facility] [id number] Univers 00:00:00 00:00:00 ity of [facility] 2022-01-04 2022-01-04 Outpatient SFA DIOGO [id number] Joey 15:42:16 15:42:16 1101 F Chai 2021-03-08 2021-03-08 Outpatient LISA GOTTI [id number] Lisa 00:00:00 00:00:00 PHIL Seybol d 2021-03-04 2021-03-04 Outpatient BLACK SHER [id number] Lisa 00:00:00 00:00:00 Seybol d 2021-03-04 2021-03-04 Outpatient BLACK SHER LISA [id number] Lisa 00:00:00 00:00:00 Seybol d 2021-03-02 2021-03-02 Telemedici Black Sher [id number] Lisa 10:00:00 10:00:00 ne W Harris [id number] Se annika [id number] 2020-11-06 2020-11-06 Outpatient LISA BOONE [id number] Lisa 00:00:00 00:00:00 NAIMA Seybol justino 2020-11-05 2020-11-05 Outpatient LISA BOONE [id number] Lisa 09:15:00 09:15:00 NAIMA Seybol justino 2020-07-01 2020-07-01 Outpatient R GERONIMO [facility] [id number] Univers 10:30:00 10:30:00 FARIHA [facility] 2020-06-03 2020-06-03 Outpatient [facility] [id number] Univers 10:30:00 10:30:00 [facility] 2020-03-20 2020-03-20 Outpatient R [facility] [id number] Univers 15:30:00 15:30:00 [facility] 2020-03-20 2020-03-20 Laboratory Only, [facility] [id number] 12:14:48 12:29:48 Only Test Kimberly [id number] [place] [id number] [place] [id number] 2020-03-20 2020-03-20 Orders Doctor ROBBIE [id number] 00:00:00 00:00:00 Only Unassigned, JAMIE [id number] [place] [facility] [id number] Results This patient has no known results.
[2022-08-08 15:13] LABS: Specific Gravity 1.025 (1.005-1.030); Urine Bacteria None Seen /HPF (<20); Urine Bilirubin NEGATIVE (Negative); Urine Blood Negative (Negative); Urine Clarity Clear (Clear); Urine Color Light-Yellow (Yellow); Urine Glucose NEGATIVE (Negative); Urine Mucus Slight /HPF (None Seen); Urine Protein NEGATIVE (Negative); Urine RBC <5 /HPF (None Seen); Urine Urobilinogen Normal (Normal); Urine pH 5.5 (5.0-7.0)
--- NOTE | 2022-08-08 15:36 | RAD REPORT ---
EXAM DESCRIPTION: CT - Head Brain Wo Cont - 08/08/2022 3:30 pm CLINICAL HISTORY: WEAKNESS Headache, drowsiness COMPARISON: HEAD BRAIN W O CONTRAST dated 11/25/2008 TECHNIQUE: All CT scans are performed using dose optimization technique as appropriate and may inclu de automated exposure control or mA/KV adjustment according to patient size. FINDINGS: No intracranial hemorrhage, hydrocephalus or extra-axial fluid collection.No areas of brai n edema or evidence of midline shift. The paranasal sinuses and mastoids are clear. The calvarium is intact. IMPRESSION: No acute intracranial abnormality.
--- NOTE | 2022-08-08 15:45 | RAD REPORT ---
EXAM DESCRIPTION: RAD - Chest Single View - 08/08/2022 3:34 pm CLINICAL HISTORY: CHEST PAIN Chest pain. COMPARISON: CHEST SINGLE VIEW dated 01/10/2015 FINDINGS: Portable technique limits examination quality. The lungs are grossly clear. The heart is normal in size. No displaced fractures. IMPRESSION: No acute intrathoracic process suspected.
[2022-08-08 16:00] LABS: Absolute Lymphocytes (CBC) 2.3 K/uL (0.7-4.9); Hematocrit 41.3 % (39.6-49.0); Lymphocytes % 16.9 % (15.3-44.8); MCV 91.7 fL (80-100); MPV 9.3 fL (7.6-11.3)
[2022-08-08 16:26] LABS: ALT/SGPT 37 U/L (16-61); AST/SGOT 17 U/L (15-37); Albumin 4.1 g/dL (3.4-5.0); Alkaline Phosphatase 59 U/L (45-117); BUN Blood Urea Nitrogen 20 mg/dL (7-18); Bicarbonate 28 mEq/L (21-32); Bilirubin Total 0.3 mg/dL (0.2-1.0); Glomerular Filtration Rate 91 ml/min (=/>90); Glucose Level 100 mg/dL (74-106); NT PRO-BNP 62 pg/mL (<125); Protein, Total 7.4 g/dL (6.4-8.2); Protime INR 0.96; Sodium Level 139 mEq/L (136-145); Troponin High Sensitivity 3.1 pg/mL (<58.9)
[2022-08-08 16:37] LABS: Bilirubin Direct < 0.1 mg/dL (0-0.2); Bilirubin Indirect, Calculated ND mg/dL (0.2-0.8)
--- NOTE | 2022-08-08 16:41 | ER ---
Nurse's Notes [facility] Name: Rodolfo Gomez Age: 51 yrs Sex: Male : 1970 Arrival Date: 08/08/2022 Time: 14:21 Bed 18 Private MD: Diagnosis: Syncope Near Presentation: 08/08 14:29 Chief complaint: EMS states: "SOB and headache that started when working in sg5 yard/passing material and thought he was going to faint. VS stable. pt states he feel fatigues and that isn't normal for him.". Coronavirus screen: Vaccine status: Patient reports being unvaccinated. Ebola Screen: No symptoms or risks identified at this time. Initial Sepsis Screen: Does the patient meet any 2 criteria? No. Patient's initial sepsis screen is negative. Does the patient have a suspected source of infection? No. Patient's initial sepsis screen is negative. Risk Assessment: Do you want to hurt yourself or someone else? Patient reports no desire to harm self or others. Onset of symptoms was August 08, 2022. 14:29 Method Of Arrival: EMS: [facility] 14:29 Acuity: VANDANA 3 sg5 Triage Assessment: 14:35 General: Appears uncomfortable, Behavior is cooperative. Pain: Denies pain. Neuro: sg5 Shah Agitation-Sedation Scale (RASS): 0 - Alert and Calm Level of Consciousness is awake, alert, obeys commands, Oriented to person, place, time, situation, Appropriate for age Reports dizziness, headache. Cardiovascular: Rhythm is regular. Respiratory: Airway is patent Respiratory effort is even, unlabored, Respiratory pattern is regular, symmetrical. Derm: Skin is pink, warm \\T\\ dry. Musculoskeletal: Range of motion: intact in all extremities. Historical: - Allergies: 14:31 No Known Allergies; sg5 - Home Meds: 14:31 None [Active]; sg5 - PMHx: 14:31 Asthma; sg5 - PSHx: 14:31 Tonsillectomy; sg5 - Immunization history:: Adult Immunizations up to date. - Social history:: Smoking status: Patient denies any tobacco usage or history of. Screenin:30 [facility] ED Fall Risk Assessment (Adult) History of falling in the last 3 months, sg5 including since admission No falls in past 3 months (0 pts). Abuse screen: Denies threats or abuse. Nutritional screening: No deficits noted. Tuberculosis screening: No symptoms or risk factors identified. Assessment: 15:30 General: Appears in no apparent distress. comfortable. Pain: Denies pain. Neuro: Level sg5 of Consciousness is awake, alert, obeys commands, Oriented to person, place, time, situation, Appropriate for age. Cardiovascular: Capillary refill < 3 seconds Patient's skin is warm and dry. Respiratory: Airway is patent Trachea midline Respiratory effort is even, unlabored, Respiratory pattern is regular, symmetrical. GI: Abdomen is flat, non-distended. : No signs and/or symptoms were reported regarding the genitourinary system. EENT: No signs and/or symptoms were reported regarding the EENT system. Derm: No signs and/or symptoms reported regarding the dermatologic system. Musculoskeletal: No signs and/or symptoms reported regarding the musculoskeletal system. Vital Signs: 14:29 BP 130 / 79; Pulse 89; Resp 18; Temp 97.9(O); Pulse Ox 99% on R/A; Weight 98.88 kg; sg5 Height 5 ft. 9 in. ; 15:00 BP 103 / 51; Pulse 74; Resp 16; Pulse Ox 100% on R/A; Pain 0/10; sg5 15:30 BP 103 / 58; Pulse 71; Resp 16; Pulse Ox 98% on R/A; Pain 0/10; sg5 16:25 BP 114 / 68 LA Supine (auto/reg); Pulse 70; em1 16:25 BP 109 / 69 LA Sitting (auto/reg); Pulse 69; em1 16:26 BP 117 / 66 LA Standing (auto/reg); Pulse 72; em1 14:29 Body Mass Index 32.19 (98.88 kg, 175.26 cm) sg5 15:00 Pain Scale: Adult sg5 15:30 Pain Scale: Adult sg5 ED Course: 14:29 Patient arrived in ED. sg5 14:29 Arm band placed on. sg5 14:31 Triage completed. sg5 14:35 Kisha Longoria FNP-C [facility]. snw 14:35 Silvestre Pemberton MD is Attending Physician. snw 14:36 Placed in gown. Bed in low position. Call light in reach. Side rails up X 1. Client sg5 placed on continuous cardiac and pulse oximetry monitoring. NIBP monitoring applied. ekg monitor on. 14:43 Klaudia Iqbal, RN is Primary Nurse. sg5 14:53 EKG done, by ED staff, reviewed by Kisha RABAGO. mb9 14:58 Urine W/Microscopic (UAM) Sent. mb9 15:31 CT Head Brain wo Cont In Process Unspecified. EDMS 15:35 XRAY Chest (1 view) In Process Unspecified. EDMS 15:52 Initial lab(s) drawn, by hi, sent to lab. Inserted saline lock: 20 gauge in right aa5 antecubital area, using aseptic technique. Blood collected. 16:57 No provider procedures requiring assistance completed. IV discontinued. sg5 Administered Medications: No medications were administered Medication: 14:36 VIS not applicable for this client. sg5 Outcome: 16:40 Discharge ordered by MD. snw 16:58 Discharged to home with friend. sg5 16:58 Condition: good 16:58 Discharge instructions given to patient, Instructed on discharge instructions, follow up and referral plans. 16:58 Patient left the ED. sg5 Signatures: Dispatcher [employer] EDKisha Jauregui FNP-C HEARING AND SPEECH ASSISTANT-Beau Diggs em1 Lindsay Mckeon, RN RN [email or web address] Iesha Carpio, RN RN mb9 Klaudia Iqbal, RN RN sg5 Corrections: (The following items were deleted from the chart) 14:36 14:29 BP 130 / 79; Pulse 89bpm; Resp 18bpm; Pulse Ox 99% RA; sg5 sg5
--- NOTE | 2022-08-08 16:41 | EDPHYS ---
Physician Documentation [facility] Name: Rodolfo Gomez Age: 51 yrs Sex: Male : 1970 Arrival Date: 08/08/2022 Time: 14:21 Bed 18 Private MD: ED Physician Silvestre Pemberton HPI: 08/08 15:23 This 51 yrs old Male presents to ER via EMS with complaints of Fainting. snw 15:23 The patient has experienced near-syncope, almost passed out. Onset: The snw symptoms/episode began/occurred suddenly, post lunch, working in muggy conditions. Duration: This was a single episode. Context: the episode(s) was witnessed, by co-worker(s), occurred outdoors, occurred while the patient was working, Just prior to the episode the patient experienced no apparent symptoms. Associated injury: The patient did not suffer any apparent associated injury. Current symptoms: fatigue. The patient has not experienced similar symptoms in the past. The patient has not recently seen a physician. Historical: - Allergies: 14:31 No Known Allergies; sg5 - Home Meds: 14:31 None [Active]; sg5 - PMHx: 14:31 Asthma; sg5 - PSHx: 14:31 Tonsillectomy; sg5 - Immunization history:: Adult Immunizations up to date. - Social history:: Smoking status: Patient denies any tobacco usage or history of. ROS: 15:21 Constitutional: Negative for fever, chills, and weight loss, Eyes: Negative for injury, snw pain, redness, and discharge, ENT: Negative for injury, pain, and discharge, Neck: Negative for injury, pain, and swelling, Cardiovascular: Negative for chest pain, palpitations, and edema, chest felt stunned Respiratory: Negative for shortness of breath, cough, wheezing, and pleuritic chest pain, Abdomen/GI: Negative for abdominal pain, vomiting, diarrhea, and constipation, +nausea Back: Negative for injury and pain, : Negative for injury, bleeding, discharge, and swelling, MS/Extremity: Negative for injury and deformity, Skin: Negative for injury, rash, and discoloration, Neuro: Negative for headache, numbness, tingling, and seizure, + dizziness, weakness Psych: Negative for depression, anxiety, suicide ideation, homicidal ideation, and hallucinations. Exam: 16:53 Head/Face: Normocephalic, atraumatic. Eyes: Pupils equal round and reactive to light, snw extra-ocular motions intact. Lids and lashes normal. Conjunctiva and sclera are non-icteric and not injected. Cornea within normal limits. Periorbital areas with no swelling, redness, or edema. ENT: Nares patent. No nasal discharge, no septal abnormalities noted. Tympanic membranes are normal and external auditory canals are clear. Oropharynx with no redness, swelling, or masses, exudates, or evidence of obstruction, uvula midline. Mucous membranes moist. Neck: Trachea midline, no thyromegaly or masses palpated, and no cervical lymphadenopathy. Supple, full range of motion without nuchal rigidity, or vertebral point tenderness. No Meningismus. Chest/axilla: Normal chest wall appearance and motion. Nontender with no deformity. No lesions are appreciated. Cardiovascular: Regular rate and rhythm with a normal S1 and S2. No gallops, murmurs, or rubs. Normal PMI, no JVD. No pulse deficits. Respiratory: Lungs have equal breath sounds bilaterally, clear to auscultation and percussion. No rales, rhonchi or wheezes noted. No increased work of breathing, no retractions or nasal flaring. Abdomen/GI: Soft, non-tender, with normal bowel sounds. No distension or tympany. No guarding or rebound. No evidence of tenderness throughout. Back: No spinal tenderness. No costovertebral tenderness. Full range of motion. Skin: Warm, dry with normal turgor. Normal color with no rashes, no lesions, and no evidence of cellulitis. MS/ Extremity: Pulses equal, no cyanosis. Neurovascular intact. Full, normal range of motion. Neuro: Awake and alert, GCS 15, oriented to person, place, time, and situation. Cranial nerves II-XII grossly intact. Motor strength 5/5 in all extremities. Sensory grossly intact. Cerebellar exam normal. Normal gait. Psych: Awake, alert, with orientation to person, place and time. Behavior, mood, and affect are within normal limits. 16:53 Constitutional: The patient appears alert, awake, listless. Vital Signs: 14:29 BP 130 / 79; Pulse 89; Resp 18; Temp 97.9(O); Pulse Ox 99% on R/A; Weight 98.88 kg; sg5 Height 5 ft. 9 in. ; 15:00 BP 103 / 51; Pulse 74; Resp 16; Pulse Ox 100% on R/A; Pain 0/10; sg5 15:30 BP 103 / 58; Pulse 71; Resp 16; Pulse Ox 98% on R/A; Pain 0/10; sg5 16:25 BP 114 / 68 LA Supine (auto/reg); Pulse 70; em1 16:25 BP 109 / 69 LA Sitting (auto/reg); Pulse 69; em1 16:26 BP 117 / 66 LA Standing (auto/reg); Pulse 72; em1 14:29 Body Mass Index 32.19 (98.88 kg, 175.26 cm) sg5 15:00 Pain Scale: Adult sg5 15:30 Pain Scale: Adult sg5 MDM: 14:35 Patient medically screened. snw 16:37 Differential Diagnosis: cardiac arrhythmia, cerebrovascular accident, seizure, snw transient ischemic attack, vasovagal episode. Data reviewed: vital signs, nurses notes, lab test result(s), EKG, radiologic studies. I considered the following discharge prescriptions or medication management in the emergency department. Counseling: I had a detailed discussion with the patient and/or guardian regarding: the historical points, exam findings, and any diagnostic results supporting the discharge/admit diagnosis, lab results, radiology results, the need for outpatient follow up, for definitive care, to return to the emergency department if symptoms worsen or persist or if there are any questions or concerns that arise at home. Response to treatment: the patient's symptoms have mildly improved after treatment. Awaiting:. Special discussion: Based on the history and exam findings, there is no indication for further emergent testing or inpatient evaluation. I discussed with the patient/guardian the need to see the primary care provider for further evaluation of the symptoms. 08/08 14:36 Order name: Urine W/Microscopic (UAM); Complete Time: 15:15 snw 08/08 15:20 Order name: Basic Metabolic Panel; Complete Time: 16:37 snw 08/08 15:20 Order name: CBC with Diff; Complete Time: 16:06 snw 08/08 15:20 Order name: LFT's; Complete Time: 16:37 snw 08/08 15:20 Order name: Magnesium; Complete Time: 16:41 snw 08/08 15:20 Order name: NT PRO-BNP; Complete Time: 16:41 snw 08/08 15:20 Order name: PT-INR; Complete Time: 16:28 snw 08/08 15:20 Order name: Troponin HS; Complete Time: 16:41 snw 08/08 15:20 Order name: XRAY Chest (1 view); Complete Time: 15:47 snw 08/08 15:20 Order name: CT Head Brain wo Cont; Complete Time: 15:40 snw 08/08 14:36 Order name: EKG; Complete Time: 14:37 snw 08/08 14:36 Order name: Orthostatics; Complete Time: 16:25 snw 08/08 14:36 Order name: EKG - Nurse/Tech; Complete Time: 14:53 snw 08/08 15:20 Order name: Cardiac monitoring; Complete Time: 16:16 snw 08/08 15:20 Order name: IV Saline Lock; Complete Time: 15:54 snw 08/08 15:20 Order name: Labs collected and sent; Complete Time: 15:54 snw 08/08 15:20 Order name: O2 Per Protocol; Complete Time: 15:54 snw 08/08 15:20 Order name: O2 Sat Monitoring; Complete Time: 15:54 snw EC:55 Rate is 75 beats/min. Rhythm is irregular. QRS [place] is Normal. MA interval is normal. snw QRS interval is normal. QT interval is normal. Clinical impression: Sinus arrythmia. Administered Medications: No medications were administered Disposition: 18:19 Co-signature as Attending Physician, Silvestre Pemberton MD I reviewed the patient's care rt provided by the Advanced Practice Provider and agree with the diagnosis and treatment plan. Disposition Summary: 08/08/22 16:40 Discharge Ordered Location: Home snw Condition: Stable snw Diagnosis - Syncope Near snw Followup: snw - With: Emergency Department - When: As needed - Reason: Worsening of condition Followup: snw - With: Private Physician - When: 1 - 2 days - Reason: Recheck today's complaints, Continuance of care, Re-evaluation by your physician Discharge Instructions: - Discharge Summary Sheet snw - Near-Syncope snw - Aspirin and Your Heart snw - Rehydration, Adult snw Forms: - Work release form snw - Medication Reconciliation Form snw - Thank You Letter snw - Antibiotic Education snw - Prescription Opioid Use snw Signatures: Dispatcher [employer] Kisha Lopez FNP-C FIRE COORDINATOR-Csnw Silvestre Pemberton MD MD rt Klaudia Iqbal RN RN sg5
[2022-08-08 17:14] VITALS: TEMP 97.9
[2022-08-08 17:25] VITALS: O2SAT 98
[2022-08-08 17:32] VITALS: BP 117/66
--- NOTE | 2022-08-10 07:21 | EKG ---
Test Date: 2022-08-08 Test Time: 14:50:40 Material Assistant: MB MEASUREMENT RESULTS: Intervals: Rate: 75 NE: 156 QRSD: 80 QT: 378 QTc: 422 Monon: P: 65 NE: 156 QRS: 73 T: 43 INTERPRETIVE STATEMENTS: Normal sinus rhythm with sinus arrhythmia Normal ECG Compared to ECG 01/10/2015 21:22:46 No significant changes Electronically Signed On 08-10-22 07:15:10 CDT by Tim Rodriguez
== END 2022-08-08 16:58 | disposition home or self-care (01) ==
LOC: ER 14:21
DX: R55 Syncope and collapse (principal); R11.0 Nausea
CPT/HCPCS: 36415; 70450; 71045; 80048; 80076; 81001; 83735; 83880; 84484; 85025; 85610; 93005; 99284

== ENCOUNTER 2023-01-26 17:20 | Emergency (ER) | payer OTHER ==
--- OUTSIDE RECORDS SUMMARY | 2023-01-26 17:22 | XMS REPORT | Continuity of Care Document ---
:1970 Author Organization [facility] t Address [address] [place] [address] Care Team Providers Name Role Phone KRISTINE ALATORRE Primary Care Physician Unavailable RADIOLOGY Attending Clinician Unavailable PHIL GOTTI Attending Clinician Unavailable BLACK SHER Attending Clinician Unavailable Black Sher MD Attending Clinician CHAD BOONE Attending Clinician Unavailable FARIHA MELTON Attending Clinician Unavailable Only, Adc Test Attending Clinician Unavailable Doctor Unassigned, Malott Attending Clinician Unavailable Payers Payer Name Policy Type Policy Number Effective Date Expiration Date S ource [facility] [id number] 2020 PPO 00:00:00 [place] [id number] 2020 00:00:00 Problems Condition Condition Condition Status [...] Date Date Clinician NO KNOWN Drug Active [facility] ALLERGIE Class ity of [facility] [place] [place] Social History Social Habit Start Date Stop Date Quantity Comments Source Sex Assigned At [birth year] Lisa Se ybold 00:00:00 00:00:00 Smoking Status Start Date Stop Date Source Never smoked tobacco Lisa Seyb old Medications Ordered Filled Start Stop Current Ordering Indication Dosage Frequency Signature Comments Components Source Medication Medication Date Date Medication? Clinician (SIG) Name Name Albuterol 2020-03 Yes [id number] 2{puff} Q4H Inhale 2 Lisa HFA 108 (90 2-28 puffs into Se ybold Base) 00:00: the lungs MCG/ACT IN 00 every 4 AERS hours as needed for wheezing Azithromyci 2020-03- No [id number] Take 2 Lisa n 250 MG 2-28 - tablets by Seyb old oral Tablet 00:00: 05:59 mouth on 00 :00 day 1 then 1 tablet by mouth daily for 4 days thereafter . Albuterol 2020- No [id number] 2{puff} Q4H Inhale 2 Lisa HFA 108 (90 9- 12-28 puffs into S eybold Base) 00:00: 00:00 the lungs MCG/ACT IN 00 :00 every 4 AERS hours as needed for wheezing methylPREDN 2020- No [id number] 1{sudeep} Take 1 sudeep Lisa ISolone 4 11-05 1228 by mouth Seybo ld MG oral 00:00: 00:00 See Admin Tablet 00 :00 Instructio Therapy ns Use as Pack directed Procedures This patient has no known procedures. Encounters Start End Encounter Admission Attending Care Care Encounter Source Date/Time Date/Time Type Type Clinicians Facility Department ID 2023-01-24 2023-01-24 Outpatient [facility] [id number] Joey 14:50:23 14:50:23 [id number] F Chai 2022-11-10 2022-11-10 Outpatient [facility] [id number] Joey 11:05:55 11:05:55 [id number] F Chai 2022-10-31 2022-10-31 Outpatient [facility] [id number] Joey 09:42:26 09:42:26 [id number] F Chai 2022-08-19 2022-08-19 Outpatient [facility] [id number] Joey 10:31:09 10:31:09 [id number] F Chai 2022-08-12 2022-08-12 Outpatient [facility] [id number] Joey 10:15:42 10:15:42 [id number] F Chai 2022-03-02 2022-03-[address] [facility] [id number] Univers 00:00[facility]00 00[facility]00[facility] [facility] 2022-01-04 2022-01-04 Outpatient [facility] [id number] Joey 15:42:16 15:42:16 [id number] F Chai 2021-03-08 2021-03-08 Outpatient LISA GOTTI [id number] Lisa 00:00:00 00:00:00 PHIL Seybol d 2021-03-04 2021-03-04 Outpatient [facility]OS [facility] [id number] Lisa 00:00:00 00:00:00 Seybol d 2021-03-04 2021-03-04 Outpatient CHRISTOS BLACK OCHOA [id number] Lisa 00:00:00 00:00:00 Seybol d 2021-03-02 2021-03-02 Telemed[facility] Black Sher [id number] Lisa 10:00:00 10:00:00 josh Iglesias [id number] Se ishanfrancesca [id number] 2020-11-06 2020-11-06 Outpatient LISA BOONE [id number] Lisa 00:00:00 00:00:00 CHAD Seybol d 2020-11-05 2020-11-05 Outpatient LISA BOONE [id number] Lisa 09:15:00 09:15:00 CHAD Seybol d 2020-07-01 2020-07-01 Outpatient R GERONIMO, [facility] [id number] Univers 10:30:00 10:30:00 FARIHA [facility] 2020-06-03 2020-06-[address] [facility] [id number] Univers 10:30:00 10:30:00 [facility] 2020-03-20 2020-03-[address] [facility] [id number] Univers 15:30:00 15:30:00 [facility] 2020-03-20 2020-03-20 Laboratory Only, [facility] [id number] 12:14:48 12:29:48 Only Test Kimberly [id number] [place] [id number] [place] [id number] 2020-03-20 2020-03-20 Orders Doctor ROBBIE [id number] 00:00:00 00:00:00 Only Unassigned, JAMIE [id number] Malott [facility] [id number] Results This patient has no known results.
[2023-01-26] MEDS ORDERED: MORPHINE 4 MG/ML SYR ONE (17:48)
[2023-01-26] MEDS ORDERED: DIAZEPAM 5 MG TABLET ONE (17:48)
[2023-01-26] MEDS ORDERED: dexAMETHasone 10 MG/ML VIAL ONE (17:48)
[2023-01-26] MEDS ORDERED: ONDANSETRON 4 MG/2 ML VIAL ONE (17:49)
[2023-01-26] MEDS ORDERED: NA CHLORIDE 0.9% 1,000 ML ONE (17:49)
[2023-01-26] MEDS ORDERED: KETOROLAC 30 MG/ML INJ ONE (17:49)
[2023-01-26 17:52] LABS: Hematocrit 42.1 % (39.6-49.0); Lymphocytes % 18.8 % (15.3-44.8); MCV 91.6 fL (80-100); MPV 9.7 fL (7.6-11.3); Platelets 219 thou/uL (152-406); RBC Red Blood Cell Count 4.59 M/uL (4.33-5.43)
[2023-01-26 17:53] LABS: Absolute Lymphocytes (CBC) 2.5 K/uL (0.7-4.9)
[2023-01-26 18:10] LABS: Albumin 3.8 g/dL (3.4-5.0); Bilirubin Total 0.3 mg/dL (0.2-1.0); Potassium 3.9 mEq/L (3.5-5.1); Protein, Total 6.7 g/dL (6.4-8.2)
--- NOTE | 2023-01-26 18:15 | RAD REPORT ---
EXAM DESCRIPTION: CTSpine Lumbar Wo Con01/26/2023 5:56 pm CLINICAL HISTORY: Right leg radiculopathy COMPARISON: None TECHNIQUE: Computed axial tomography lumbar spine was obtained with coronal and sagittal reconstruct ion. All CT scans are performed using dose optimization technique as appropriate and may include automated exposure control or mA/KV adjustment according to patient size. FINDINGS: No fracture is seen. No dislocation is noted. Small left lateral disc herniation L3-4 narrows the left neural foramina. Small to moderate right posterolateral disc herniation L4-5. Disc material appears to extend inferior ly. Narrowing the right neural foramina. Vacuum phenomena present within the disc. Mild spondylosis L5-S1 IMPRESSION: Small to moderate right posterolateral disc herniation L4-5. Nonemergent MRI lumbar spin e recommended for further evaluation
--- NOTE | 2023-01-26 18:26 | ER ---
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 chiropractor, felt better, but started hurting again Monday, worse when bearing weight. No known injury. 17:22 Coronavirus screen: Vaccine status: Patient reports receiving the 2nd dose of the covid nj1 vaccine. Ebola Screen: Patient denies travel to an Ebola-affected area in the 21 days before illness onset. Initial Sepsis Screen: Does the patient meet any 2 criteria? HR > 90 bpm. No. Patient's initial sepsis screen is negative. Does the patient have a suspected source of infection? No. Patient's initial sepsis screen is negative. Risk Assessment: Do you want to hurt yourself or someone else? Patient reports no desire to harm self or others. Onset of symptoms was January 23, 2023. 17:22 Method Of Arrival: Ambulatory [facility] 17:22 Acuity: VANDANA [address] [facility] Historical: - Allergies: 17:32 No Known Allergies; nj1 - PMHx: 17:28 Asthma; Back pain (Tonsillectomy); mb9 - PSHx: 17:28 Tonsillectomy; mb9 - Immunization history:: Client reports receiving the 2nd dose of the Covid vaccine. - Social history:: Smoking status: Patient denies any tobacco usage or history of. - Family history:: not pertinent. Screenin:28 [facility] ED Fall Risk Assessment (Adult) History of falling in the last 3 months, mb9 including since admission No falls in past 3 months (0 pts) Confusion or Disorientation No (0 pts) Intoxicated or Sedated No (0 pts) Impaired Gait No (0 pts) Mobility Assist Device Used No (0 pt) Altered Elimination No (0 pt) Score/Fall Risk Level 0 - 2 = Low Risk Oriented to surroundings, Maintained a safe environment, Educated pt \T\ family on fall prevention, incl call for assistance when getting out of bed. Abuse screen: Denies threats or abuse. Nutritional screening: No deficits noted. Tuberculosis screening: No symptoms or risk factors identified. Assessment: 17:47 General: Appears in no apparent distress. Behavior is calm, cooperative. Pain: mb9 Complains of pain in back Pain radiates to right leg Pain currently is 10 out of 10 on a pain scale. Quality of pain is described as sharp, shooting, Pain began Is chronic. Neuro: Shah Agitation-Sedation Scale (RASS): 0 - Alert and Calm Level of Consciousness is awake, alert, obeys commands, Oriented to person, place, time, situation, Appropriate for age. Cardiovascular: Patient's skin is warm and dry. Respiratory: Airway is patent Respiratory effort is even, unlabored, Respiratory pattern is regular, symmetrical. GI: Abdomen is round non-distended. : No signs and/or symptoms were reported regarding the genitourinary system. EENT: No signs and/or symptoms were reported regarding the EENT system. Derm: Skin is pink, warm \T\ dry. Musculoskeletal: Range of motion: intact in all extremities. 18:32 Reassessment: Patient and/or family updated on plan of care and expected duration. Pain mb9 level reassessed. Patient is alert, oriented x 3, equal unlabored respirations, skin warm/dry/pink. Patient states feeling better. Patient states symptoms have improved. Vital Signs: 17:22 BP 124 / 77; Pulse 93; Resp 18; Temp 99(TE); Pulse Ox 96% on R/A; Weight 99.34 kg; nj1 Height 5 ft. 10 in. ; Pain 9/10; 18:32 BP 121 / 74; Pulse 86; Resp 16; Pulse Ox 100% on R/A; mb9 17:22 Body Mass Index 31.42 (99.34 kg, 177.8 cm) nj1 17:22 Pain Scale: Adult ak1 ED Course: 17:21 Patient arrived in ED. rg4 17:22 Dwight Lock MD is Attending Physician. ajay 17:28 Iesha Carpio RN is Primary Nurse. mb9 17:28 Arm band placed on. mb9 17:29 Placed in gown. Bed in low position. Call light in reach. Side rails up X 1. Client mb9 placed on continuous cardiac and pulse oximetry monitoring. NIBP monitoring applied. 17:32 Triage completed. nj1 17:48 Inserted saline lock: 20 gauge in right antecubital area, using aseptic technique. mb9 17:49 Comprehensive Metabolic Panel Sent. mb9 17:49 CBC with Diff Sent. mb9 17:56 CT Lumbar Spine Wo Con In Process Unspecified. EDMS 18:25 Deangelo Valera MD is Referral Physician. [facility] 18:32 No provider procedures requiring assistance completed. IV discontinued, intact, mb9 bleeding controlled, No redness/swelling at site. Pressure dressing applied. Administered Medications: 17:38 Drug: Ondansetron IVP 4 mg IVP once; over 2 minutes Route: IVP; Site: right antecubital;mb9 18:31 Follow up: Response: No adverse reaction mb9 17:40 Drug: morphine IVP or IV 4 mg IVP once over 4 mins Route: IVP; Infused Over: 4 mins; mb9 Site: right antecubital; 18:31 Follow up: Response: No adverse reaction mb9 17:41 Drug: Ketorolac IVP 30 mg IVP once Route: IVP; Site: right antecubital; mb9 18:31 Follow up: Response: No adverse reaction mb9 17:48 Drug: NS 0.9% IV 1000 ml IV at 1 bolus Per protocol; 1000 mL bolus Route: IV; Rate: 1 mb9 bolus; Site: right antecubital; 18:31 Follow up: Response: No adverse reaction; IV Status: Completed infusion mb9 17:48 Drug: Diazepam PO 10 mg PO once Route: PO; mb9 18:31 Follow up: Response: No adverse reaction mb9 17:49 Drug: Decadron - Dexamethasone IVP 10 mg IVP once Route: IVP; Site: right antecubital; mb9 18:31 Follow up: Response: No adverse reaction mb9 Medication: 17:29 VIS not applicable for this client. mb9 Outcome: 18:25 Discharge ordered by . ajay 18:38 Discharged to home via wheelchair, with family, mb9 18:38 Condition: stable 18:38 Discharge instructions given to patient, family, Instructed on discharge instructions, follow up and referral plans. Demonstrated understanding of instructions, follow-up care, medications, Prescriptions given X 4, 18:38 Patient left the ED. mb9 Signatures: Dispatcher [employer] Dwight Strange MD MD cha Garcia, Rubi rg4 Iesha Carpio RN RN mb9 Marilyn Haywood RN RN nj1
--- NOTE | 2023-01-26 18:26 | EDPHYS ---
Physician Documentation [facility] Name: Rodolfo Gomez Age: 52 yrs Sex: Male : 1970 Arrival Date: 01/26/2023 Time: 17:20 Bed 19 Private MD: ED Physician Dwight Lock HPI: 01/26 17:49 This 52 yrs old Male presents to ER via Ambulatory with complaints of Low Back ajay Pain, Leg Pain. 17:49 The patient presents with pain that is acute, with no known mechanism of injury. The ajay symptoms are located in the low back, lumbar area and right low back. The pain radiates to the right mid back and right low back. The problem was sustained from unknown cause. The problem was sustained. Onset: The symptoms/episode began/occurred 3 day(s) ago. Modifying factors: The patient symptoms are alleviated by remaining still, the patient symptoms are aggravated by any movement, lifting, movement. Associated signs and symptoms: The patient has no apparent associated signs or symptoms. Severity of symptoms: At their worst the symptoms were moderate, in the emergency department the symptoms are unchanged. The patient has not experienced similar symptoms in the past. Historical: - Allergies: 17:32 No Known Allergies; nj1 - PMHx: 17:28 Asthma; Back pain (Tonsillectomy); mb9 - PSHx: 17:28 Tonsillectomy; mb9 - Immunization history:: Client reports receiving the 2nd dose of the Covid vaccine. - Social history:: Smoking status: Patient denies any tobacco usage or history of. - Family history:: not pertinent. ROS: 17:49 Constitutional: Negative for fever, chills, and weight loss, Eyes: Negative for injury, ajay pain, redness, and discharge, ENT: Negative for injury, pain, and discharge, Neck: Negative for injury, pain, and swelling, Cardiovascular: Negative for chest pain, palpitations, and edema, Respiratory: Negative for shortness of breath, cough, wheezing, and pleuritic chest pain, Abdomen/GI: Negative for abdominal pain, nausea, vomiting, diarrhea, and constipation, : Negative for injury, bleeding, discharge, and swelling, MS/Extremity: Negative for injury and deformity, Skin: Negative for injury, rash, and discoloration, Neuro: Negative for headache, weakness, numbness, tingling, and seizure, Psych: Negative for depression, anxiety, suicide ideation, homicidal ideation, and hallucinations, Allergy/Immunology: Negative for hives, rash, and allergies, Endocrine: Negative for neck swelling, polydipsia, polyuria, polyphagia, and marked weight changes, 17:49 Back: Positive for decreased range of motion, pain with movement, radiated pain, of the right low back, Exam: 17:49 Constitutional: This is a well developed, well nourished patient who is awake, alert, ajay and in no acute distress. Head/Face: Normocephalic, atraumatic. Eyes: Pupils equal round and reactive to light, extra-ocular motions intact. Lids and lashes normal. Conjunctiva and sclera are non-icteric and not injected. Cornea within normal limits. Periorbital areas with no swelling, redness, or edema. ENT: Nares patent. No nasal discharge, no septal abnormalities noted. Tympanic membranes are normal and external auditory canals are clear. Oropharynx with no redness, swelling, or masses, exudates, or evidence of obstruction, uvula midline. Mucous membranes moist. Neck: Trachea midline, no thyromegaly or masses palpated, and no cervical lymphadenopathy. Supple, full range of motion without nuchal rigidity, or vertebral point tenderness. No Meningismus. Chest/axilla: Normal chest wall appearance and motion. Nontender with no deformity. No lesions are appreciated. Cardiovascular: Regular rate and rhythm with a normal S1 and S2. No gallops, murmurs, or rubs. Normal PMI, no JVD. No pulse deficits. Respiratory: Lungs have equal breath sounds bilaterally, clear to auscultation and percussion. No rales, rhonchi or wheezes noted. No increased work of breathing, no retractions or nasal flaring. Abdomen/GI: Soft, non-tender, with normal bowel sounds. No distension or tympany. No guarding or rebound. No evidence of tenderness throughout. Male : Normal genitalia with no discharge or lesions. Skin: Warm, dry with normal turgor. Normal color with no rashes, no lesions, and no evidence of cellulitis. MS/ Extremity: Pulses equal, no cyanosis. Neurovascular intact. Full, normal range of motion. Neuro: Awake and alert, GCS 15, oriented to person, place, time, and situation. Cranial nerves II-XII grossly intact. Motor strength 5/5 in all extremities. Sensory grossly intact. Cerebellar exam normal. Normal gait. Psych: Awake, alert, with orientation to person, place and time. Behavior, mood, and affect are within normal limits. 17:49 Back: pain, that is mild, that is moderate, ROM is normal, normal spinal alignment noted, CVA tenderness, that is mild, that is moderate, vertebral tenderness, is not appreciated, muscle spasm, is appreciated in the right mid back and right low back, Vital Signs: 17:22 BP 124 / 77; Pulse 93; Resp 18; Temp 99(TE); Pulse Ox 96% on R/A; Weight 99.34 kg; nj1 Height 5 ft. 10 in. ; Pain 9/10; 18:32 BP 121 / 74; Pulse 86; Resp 16; Pulse Ox 100% on R/A; mb9 17:22 Body Mass Index 31.42 (99.34 kg, 177.8 cm) [facility] 17:22 Pain Scale: Adult nj1 MDM: 17:23 Patient medically screened. [facility] 17:52 Differential diagnosis: arthritis, strain. Data reviewed: vital signs, nurses notes, [facility] lab test result(s), radiologic studies, CT scan. Consideration of Admission/Observation Escalation of care including admission/observation considered. I considered the following discharge prescriptions or medication management in the emergency department Medications were administered in the Emergency Department. See MAR. Test considered but Not performed: MRI: no mri lumbar. Care significantly affected by the following chronic conditions: asthma, back pain. 01/26 17:33 Order name: CBC with Diff; Complete Time: 18:23 [facility] 01/26 17:33 Order name: Comprehensive Metabolic Panel; Complete Time: 18:23 [facility] 01/26 17:33 Order name: CT Lumbar Spine Wo Con; Complete Time: 18:23 [facility] Administered Medications: 17:38 Drug: Ondansetron IVP 4 mg IVP once; over 2 minutes Route: IVP; Site: right antecubital;mb9 18:31 Follow up: Response: No adverse reaction mb9 17:40 Drug: morphine IVP or IV 4 mg IVP once over 4 mins Route: IVP; Infused Over: 4 mins; mb9 Site: right antecubital; 18:31 Follow up: Response: No adverse reaction mb9 17:41 Drug: Ketorolac IVP 30 mg IVP once Route: IVP; Site: right antecubital; mb9 18:31 Follow up: Response: No adverse reaction mb9 17:48 Drug: NS 0.9% IV 1000 ml IV at 1 bolus Per protocol; 1000 mL bolus Route: IV; Rate: 1 mb9 bolus; Site: right antecubital; 18:31 Follow up: Response: No adverse reaction; IV Status: Completed infusion mb9 17:48 Drug: Diazepam PO 10 mg PO once Route: PO; mb9 18:31 Follow up: Response: No adverse reaction mb9 17:49 Drug: Decadron - Dexamethasone IVP 10 mg IVP once Route: IVP; Site: right antecubital; mb9 18:31 Follow up: Response: No adverse reaction mb9 Disposition Summary: 01/26/23 18:25 Discharge Ordered Notes: Location: Home ajay Problem: new ajay Symptoms: have improved ajay Condition: Stable ajay Diagnosis - Lumbago with sciatica, right side ajay - Sciatica, right side ajay - Low back pain ajay - Other intervertebral disc disorders, lumbar region - herniation l4-5 right ajay Followup: ajay - With: Private Physician - When: 2 - 3 days - Reason: Recheck today's complaints, Continuance of care, Re-evaluation by your physician Followup: ajay - With: Deangelo Valera MD - When: 2 - 3 days - Reason: Recheck today's complaints, Continuance of care, Re-evaluation by your physician Discharge Instructions: - Discharge Summary Sheet ajay - Acute Back Pain, Adult ajay - Herniated Disk ajay - Musculoskeletal Pain ajay - Sciatica ajay - Sciatica, [id number] [facility] Forms: - Medication Reconciliation Form [facility] - Thank You Letter [facility] - Antibiotic Education [facility] - Prescription Opioid Use [facility] - Patient Portal Instructions [facility] - Leadership Thank You Letter [facility] Prescriptions: - acetaminophen-codeine 300-30 mg Oral tablet - take 2 tablet ORAL route 4 times per day as needed for pain; 20 tablet; ajay Refills: 0, Product Selection Permitted - dexamethasone 2 mg Oral tablet - take 1 tablet ORAL route every 12 hours; 10 tablet; Refills: 0, Product ajay Selection Permitted - Diclofenac Sodium 75 mg Oral tablet, delayed release (enteric coated) - take 1 tablet ORAL route 2 times per day; 20 tablet; Refills: 0, Product ajay Selection Permitted - Cyclobenzaprine 5 mg Oral Tablet - take 1 tablet ORAL route 3 times per day As needed; 15 tablet; Refills: 0, ajay Product Selection Permitted Signatures: Dispatcher [employer] Dwight Strange MD MD cha Breneman, Iesha Zhou, RN RN mb9 Marilyn Haywood RN RN nj1
[2023-01-26 19:09] VITALS: TEMP 99
[2023-01-26 19:10] VITALS: BP 121/74; O2SAT 100
== END 2023-01-26 18:38 | disposition home or self-care (01) ==
LOC: ER 17:20
DX: M51.17 Intervertebral disc disorders with radiculopathy, lumbosacral region (principal)
CPT/HCPCS: 96361; 85025; 36415; 80053; 72131; 96375; 96374; 99284; J1100; J2405; J7030

== ENCOUNTER 2024-04-15 18:27 | Emergency (ER) | payer BC, OTHER ==
--- OUTSIDE RECORDS SUMMARY | 2024-04-15 18:39 | XMS REPORT | Continuity of Care Document ---
Author Name Unknown Address [address] [facility] [address] [place] [address] [facility] Address [address] [facility] [place] [address] Care Team Providers Care Coater Operator Insulation Board Name Role Phone Everette HUGHES, Naima Iqbal Primary Care Physician DEITER BUCHANAN Attending Clinician UnavailDIETER Infante Attending Clinician Unavaila Martín Ortiz Attending Clinician Dieter Buchanan MD Attending Clinician RADIOLOGY Attending Clinician Unavailable PHIL GOTTI Attending Clinician Unavailable BLACK SHER Attending Clinician Unavailable Black Sher MD Attending Clinician NAIMA BOONE Attending Clinician Unava ilFARIHA White Attending Clinician Unavailable Only, Adc Test Attending Clinician Unavailable Doctor Unassigned, [place] Attending Clinician U navailable Payers Payer Name Policy Type Policy Number Effective Date Expirati on Date Source [facility] [id number] 2023 00:[facility] [id number] 2020 00:00:00 [facility] 3 [id number] 2020 00:00:00 Problems Condition Name Condition Details Condition Category Status Onset Date Resolution Date Last Treatment Date Treating Clinician Comments Source Mild intermitte nt asthma without complicati on Mild intermitte nt asthma without complicati on Disease Active 2020-03 00:00: 00 Lisa Steven Allergies, Adverse Reactions, Alerts Allergy Name Allergy Type Status Severity Reaction(s) Onset Date Inactive Date Treating Clinician Comments Source NO KNOWN ALLERGIE S Drug Class Active [facility] Social History Social Habit Start Date Stop Date Quantity Comments Source Sexual orientation U [facility] Sex assigned at 1970 00:00:00 1970 00:00:00 [facility] Smoking Status Start Date Stop Date Source Tobacco smoking consumption unknown [facility] Never smoked tobacco Lisa Steven Medications Ordered Medication Name Filled Medication Name Start Date Stop Date Current Medication? Ordering Clinician Indication Dosage Frequency Signature (SIG) Comments Components Source albuterol sulfate HFA 90 mcg/actuati on aerosol inhaler 2023-03 00:00: 00 Yes 1mcg/ac tuation Joey Paula Bromfed DM 2 mg-30 mg-10 mg/5 mL oral syrup 2023-03 00:00: 00 Yes 10mg/5 mL Joey Paula TAKE 1 TABLET DAILY. 03-25 00:00: 00 07-17 00:00 :00 No 20 Joey Paula TAKE 10 ML EVERY 6 TO 8 HOURS NEEDED FOR COUGH 03-25 00:00: 00 07-17 00:00 :00 No [id number] Joey Paula BENZONATATE 200 MG 03-24 00:00: 00 Yes Joey Paula PREDNISONE 20 MG TABS 03-24 00:00: 00 Yes Joey Paula DICLOFENAC SODIUM DR 75 MG TBEC 2022-03 00:00: 00 Yes Joey Paula ACETAMINOPH EN/CODEINE 300-30 MG TABS 2022-03 00:00: 00 Yes Joey Paula DEXAMETHASO NE 2 MG TABS 2022-03 00:00: 00 Yes Joey Paula CYCLOBENZAP RINE HYDROCHLORI DE 5 MG TABS 2022-03 00:00: 00 Yes Joey Paula BENZONATATE 200 MG 2022-03 00:00: 00 Yes Joey Paula OSELTAMIVIR PHOSPHATE 75 MG 2022-03 1- 00:00: 00 Yes Joey Paula TAKE 1 TABLET DAILY. - 00:00: 00 07-17 00:00 :00 No 10 Joey Paula TAKE DIRECTED. - 00:00: 00 07-17 00:00 :00 No Joey Paula TAKE 1 TABLET EVERY 12 HOURS DAILY. - 00:00: 00 07-17 00:00 :00 No 250 Joey Paula TAKE 1 TABLET TWICE DAILY NEEDED. - 00:00: 00 07-17 00:00 :00 No 10 Joey Paula PREDNISONE 20 MG TABS 4-04 00:00: 00 Yes Joey Paula ALBUTEROL SULFATE HFA 108 (90 Base) MCG/ACT AERS 2021-03 2-15 00:00: 00 Yes Joey Paula IBUPROFEN 600 MG TABS 2021-03 2-15 00:00: 00 Yes Joey Paula METHYLPREDN ISOLONE DOSE PACK 4 MG TBPK 2021-03 2-15 00:00: 00 Yes Joey Paula Dose Unknown 2021-03 2-15 00:00: 00 Yes Joey Paula Dose Unknown 2021-03 2-15 00:00: 00 07-17 00:00 :00 No Joey Paula Dose Unknown 2021-03 2-15 00:00: 00 07-17 00:00 :00 No Joey Paula Dose Unknown 2021-03 2-15 00:00: 00 07-17 00:00 :00 No Joey Paula FLUTICASONE PROPIONATE 50 MCG/ACT SUSP 2021-03 1-07 00:00: 00 Yes Joey Paula INHALE 2 PUFFS EVERY 4-6 HOURS NEEDED. 8-15 00:00: 00 Yes Joey Paula Dose Unknown 8-15 00:00: 00 Yes Joey Paula Dose Unknown 8-13 00:00: 00 Yes 250 Joey Paula &lt 8-12 00:00: 00 Yes 4 Joey Paula &lt 8-12 00:00: 00 Yes 250 Joey Paula Dose Unknown 3-31 00:00: 00 Yes Joey Paula Dose Unknown 2-07 00:00: 00 Yes Joey Paula Albuterol HFA 108 (90 Base) MCG/ACT IN AERS 2020-03 00:00: 00 Yes [id number] 2{puff} Q4H Inhale 2 puffs into the lungs every 4 hours as needed for wheezing Lisa Steven Azithromyci n 250 MG oral Tablet 2020-03 00:00: 00 03-08 05:59 :00 No [id number] Take 2 tablets by mouth on day 1 then 1 tablet by mouth daily for 4 days thereafter . Lisa Steven Albuterol HFA 108 (90 Base) MCG/ACT IN AERS 11-05 00:00: 00 03-02 00:00 :00 No [id number] 2{puff} Q4H Inhale 2 puffs into the lungs every 4 hours as needed for wheezing Lisa Steven methylPREDN ISolone 4 MG oral Tablet Therapy Pack 11-05 00:00: 00 03-02 00:00 :00 No [id number] 1{sudeep} Take 1 sudeep by mouth See Admin Instructio ns Use as directed Lisa Steven Immunizations Ordered Immunization Name Filled Immunization Name Date Status Comments Source SARS-COV-2 COVID-19 MODERNA 12+ YRS VACCINE Unknown Completed [facility] SARS-COV-2 COVID-19 MODERNA 12+ YRS VACCINE Unknown Completed [facility] Vital Signs Vital Name Observation Time Observation Value Comments S ource BP Systolic 2024-02-09 09:20:00 117 mm[Hg] Feliciano Paula BP Diastolic 2024-02-09 09:20:00 77 mm[Hg] Angel Paula Weight Measured 2024-02-09 09:20:00 227.40 pounds Joey Paula Height Measured 2024-02-09 09:20:00 68.13 inches Joey Paula Body Temperature 2024-02-09 09:20:00 98.50 degrees Joey Paula Heart Rate 2024-02-09 09:20:00 75.00 /min en F Chai Respiratory Rate 2024-02-09 09:20:00 Joey F Chai BP Systolic 2023-07-10 14:31:00 122 mm[Hg] Step hen F Chai BP Diastolic 2023-07-10 14:31:00 77 mm[Hg] Angel phen F Chai Weight Measured 2023-07-10 14:31:00 220.60 pounds Joey F Chai Height Measured 2023-07-10 14:31:00 68.13 inches Joey F Chai Body Temperature 2023-07-10 14:31:00 98.20 degrees Joey F Chai Heart Rate 2023-07-10 14:31:00 89.00 /min en F Chai Respiratory Rate 2023-07-10 14:31:00 19.00 /min Joey F Chai BP Systolic 2023-01-24 14:56:00 107 mm[Hg] Step hen F Chai BP Diastolic 2023-01-24 14:56:00 70 mm[Hg] Angel phen F Chai Weight Measured 2023-01-24 14:56:00 215.60 pounds Joey F Chai Height Measured 2023-01-24 14:56:00 68.13 inches Joey F Chai Body Temperature 2023-01-24 14:56:00 98.20 degrees Joey F Chai Heart Rate 2023-01-24 14:56:00 80.00 /min en F Chai Respiratory Rate 2023-01-24 14:56:00 19.00 /min Joey F Chai BP Systolic 2022-11-10 11:15:00 113 mm[Hg] Step hen F Chai BP Diastolic 2022-11-10 11:15:00 72 mm[Hg] Angel phen F Chai Weight Measured 2022-11-10 11:15:00 212.00 pounds Joey F Chai Height Measured 2022-11-10 11:15:00 68.13 inches Joey F Chai Body Temperature 2022-11-10 11:15:00 97.90 degrees Joey F Chai Heart Rate 2022-11-10 11:15:00 73.00 /min en F Chai Respiratory Rate 2022-11-10 11:15:00 19.00 /min Joey F Chai BP Systolic 2022-10-31 10:08:00 112 mm[Hg] Step hen F Chai BP Diastolic 2022-10-31 10:08:00 75 mm[Hg] Angel phen F Chai Weight Measured 2022-10-31 10:08:00 212.80 pounds Joey F Chai Height Measured 2022-10-31 10:08:00 68.13 inches Joey F Chai Body Temperature 2022-10-31 10:08:00 97.80 degrees Joey F Chai Heart Rate 2022-10-31 10:08:00 65.00 /min en F Chai Respiratory Rate 2022-10-31 10:08:00 Joey F Chai BP Systolic 2022-08-19 10:41:00 112 mm[Hg] Step hen F Chai BP Diastolic 2022-08-19 10:41:00 71 mm[Hg] Angel phen F Chai Weight Measured 2022-08-19 10:41:00 214.60 pounds Joey F Chai Height Measured 2022-08-19 10:41:00 68.13 inches Joey F Chai Body Temperature 2022-08-19 10:41:00 98.50 degrees Joey F Chai Heart Rate 2022-08-19 10:41:00 71.00 /min en F Chai Respiratory Rate 2022-08-19 10:41:00 16.00 /min Joey F Chai BP Systolic 2022-08-12 10:11:00 127 mm[Hg] Step hen F Chai BP Diastolic 2022-08-12 10:11:00 80 mm[Hg] Angel phen F Chai Weight Measured 2022-08-12 10:11:00 214.60 pounds Joey F Chai Height Measured 2022-08-12 10:11:00 68.13 inches Joey F Chai Body Temperature 2022-08-12 10:11:00 98.20 degrees Joey F Chai Heart Rate 2022-08-12 10:11:00 72.00 /min en F Chai Respiratory Rate 2022-08-12 10:11:00 17.00 /min Joey F Chai BP Systolic 2022-02-17 11:35:00 120 mm[Hg] Step hen F Chai BP Diastolic 2022-02-17 11:35:00 73 mm[Hg] Angel phen F Chai Weight Measured 2022-02-17 11:35:00 206.80 pounds Joey F Chai Height Measured 2022-02-17 11:35:00 68.13 inches Joey F Chai Body Temperature 2022-02-17 11:35:00 98.80 degrees Joey F Chai Heart Rate 2022-02-17 11:35:00 90.00 /min en F Chai Respiratory Rate 2022-02-17 11:35:00 18.00 /min Joey F Chai BP Systolic 2022-01-04 15:59:00 111 mm[Hg] Step hen F Chai BP Diastolic 2022-01-04 15:59:00 64 mm[Hg] Angel phen F Chai Weight Measured 2022-01-04 15:59:00 208.00 pounds Joey F Chai Height Measured 2022-01-04 15:59:00 68.13 inches Joey F Chai Body Temperature 2022-01-04 15:59:00 98.30 degrees Joey F Chai Heart Rate 2022-01-04 15:59:00 73.00 /min en F Chai Respiratory Rate 2022-01-04 15:59:00 18.00 /min Joey F Chai BP Systolic 2021-06-03 17:31:00 Step hen F Chai BP Diastolic 2021-06-03 17:31:00 Angel phen F Chai Weight Measured 2021-06-03 17:31:00 205.00 pounds Joey F Chai Height Measured 2021-06-03 17:31:00 68.13 inches Joey F Chai Body Temperature 2021-06-03 17:31:00 Joey F Chai Heart Rate 2021-06-03 17:31:00 en F Chai Respiratory Rate 2021-06-03 17:31:00 Joey F Chai BP Systolic 2021-04-12 13:34:00 110 mm[Hg] Step hen F Chia BP Diastolic 2021-04-12 13:34:00 71 mm[Hg] Angel phen F Chai Weight Measured 2021-04-12 13:34:00 205.80 pounds Joey F Chai Height Measured 2021-04-12 13:34:00 68.13 inches Joey F Chai Body Temperature 2021-04-12 13:34:00 98.40 degrees Joey Paula Heart Rate 2021-04-12 13:34:00 81.00 /min Steph Paula Respiratory Rate 2021-04-12 13:34:00 Joey Paula Encounters Start Date/Time End Date/Time Encounter Type Admission Type Attending [facility] Care Department Encounter ID Source 2024-02-09 00:00:00 2024-02-09 00:00:00 Outpatient Visit [facility] [id number] Joey Paula 2023-08-30 10:30:00 2023-08-30 10:30:00 Outpatient R DIETER BUCHANAN, STRAHIL [facility] [id number] [facility] 2023-08-30 00:00:00 2023-08-30 10:06:47 Letter (Out) [facility] .[id number] [facility] 2023-08-29 00:00:00 2023-08-29 13:45:29 Telephone Dieter Buchanan [facility] [id number] [facility] 2023-07-12 09:30:00 2023-07-12 09:30:00 Outpatient R DIETER BUCHANAN, STRAH[facility] [id number] [facility] 2023-07-11 09:12:52 2023-07-11 09:12:52 Outpatient [facility] [id number] Joey Paula 2023-07-10 14:23:56 2023-07-10 14:23:56 Outpatient [facility] [id number] Joey Paula 2023-07-10 00:00:00 2023-07-10 00:00:00 Outpatient Visit [facility] [id number] Joey Paula 2023-01-24 14:50:23 2023-01-24 14:50:23 Outpatient [facility] [id number] Joey Paula 2022-11-10 11:05:55 2022-11-10 11:05:55 Outpatient [facility] [id number] Joey Paula 2022-10-31 09:42:26 2022-10-31 09:42:26 Outpatient [facility] [id number] Joey Paula 2022-08-19 10:31:09 2022-08-19 10:31:09 Outpatient [facility] [id number] Joey Paula 2022-08-12 10:15:42 2022-08-12 10:15:42 Outpatient [facility] [id number] Joey Paula 2022-03-02 00:00:00 2022-03-02 00:00:00 Outpatient R RADIOLOGY [facility] [id number] [facility] 2022-01-04 15:42:16 2022-01-04 15:42:16 Outpatient [facility] [id number] Joey Paula 2021-03-08 00:00:00 2021-03-08 00:00:00 Outpatient PHIL GOTTI [id number] [facility] 2021-03-04 00:00:00 2021-03-04 00:00:00 Outpatient BLACK SHER [id number] Lisa [facility] 2021-03-04 00:00:00 2021-03-04 00:00:00 Outpatient BLACK SHER [id number] Lisa [facility] 2021-03-02 10:00:00 2021-03-02 10:00:00 Telemedici ne Black Sher [id number] Lisa Steven 2020-11-06 00:00:00 2020-11-06 00:00:00 Outpatient NAIMA BOONE LISA [id number] Lisa Steven 2020-11-05 09:15:00 2020-11-05 09:15:00 Outpatient NAIMA BOONE LISA [id number] Lisa Steven 2020-07-01 10:30:00 2020-07-01 10:30:00 Outpatient R GERONIMO FARIHA [facility] [id number] [facility] 2020-06-03 10:30:00 2020-06-03 10:30:[address] [facility] [id number] [facility] 2020-03-20 15:30:00 2020-03-20 15:30:00 Outpatient R [facility] [id number] [facility] 2020-03-20 12:14:48 2020-03-20 12:29:48 Laboratory Only Only, Adc Test [facility] 1..840.114 [id number] [id number] 2020-03-20 00:00:00 2020-03-20 00:00:00 Orders Only Doctor Unassigned, [place] [facility] [id number] [id number] [id number] Results Test Description Test Time Test Comments Results Result Co mments Source TSH, THIRD [id number] 09:55:10* Test Item Value Reference Range Interpretation Comme [facility] TSH, THIRD GENERATION (test code = 2821) 1.460 UIU/ML 0.400-4.100 LIPID [id number] 06:31:02* Test Item Value Reference Range Interpretation Comme nts CHOLESTEROL (test code = 2210) 172 MG/DL <200 TRIGLYCERIDES (test code = 2232) 86 MG/DL <150 HDL CHOLESTEROL (test code = 2220) 31 MG/DL >39 L CALC LDL CHOL (test code = 2237) 122 MG/DL <100 H NOTE: CALCULATED LDL IS BASED ON KENIA-BRADEN METHOD WHICHINCLUDES ADJUSTABLE TRIGLYCERIDE:VLDL CHOLESTEROL RATIO.THIS FACTOR VARIES BY MEASURED TRIGLYCERIDE AND NON-HDLCHOLESTEROL CONCENTRATIONS WITH INCREASED CALCULATED LDL SEENIN HIGHER TRIGLYCERIDE OR LOWER NON-HDL SPECIMENS. FOR MOREINFORMATION, SEE CLIENT ANNOUNCEMENT AT [email or web address] RISK RATIO LDL/HDL (test code = 2237) 3.94 RATIO <3.55 H COMPREHENSIVE METABOLIC [id number] 06:31:02* Test Item Value Reference Range Interpretation Comme nts GLUCOSE (test code = 2216) 104 MG/DL 70-99 H BUN (test code = 2207) 17 MG/DL 6-20 CREATININE (test code = 221) 1.09 MG/DL 0.80-1.40 eGFR (2020 CKD-EPI) (test co de = 19805) 81 ML/MIN/1.73 >60 CALC BUN/CREAT (test code = 5) 16 RATIO 6-28 SODIUM (test code = 223) 141 MEQ/L 133-146 POTASSIUM (test code = 222) 4.8 MEQ/L 3.5-5.4 CHLORIDE (test code = 221) 103 MEQ/L 95-107 CARBON DIOXIDE (test code = 2206) 26 MEQ/L 19-31 CALCIUM (test code = 2209) 9.2 MG/DL 8.5-10.5 PROTEIN, TOTAL (test code = 222) 7.2 G/DL 6.1-8.3 ALBUMIN (test code = 2201) 4.7 G/DL 3.5-5.2 CALC GLOBULIN (test code = 2240) 2.5 G/DL 1.9-3.7 CALC A/G RATIO (test code = 223) 1.9 RATIO 1.0-2.6 BILIRUBIN, TOTAL (test code = 220) 0.4 MG/DL <=1.2 ALKALINE PHOSPHATASE (test code = 220) 74 U/L 40-121 AST (test code = 2218) 22 U/L 9-50 ALT (test code = 2219) 32 U/L 5-50 CBC W/AUTO DIFF WITH [id number] 01:56:28* Test Item Value Reference Range Interpretation Comme nts WBC (test code = 1001) 10.0 K/UL 3.5-11.0 RBC (test code = 1002) 5.13 M/UL 4.50-6.10 HEMOGLOBIN (test code = 1003) 15.2 G/DL 13.5-17.0 HEMATOCRIT (test code = 1004) 45.9 % 40.0-51.0 MCV (test code = 1005) 89.5 fL 80.0-99.0 MCH (test code = 1006) 29.6 PG 25.0-33.0 MCHC (test code = 1007) 33.1 G/DL 31.0-36.0 RDW (test code = 1038) 12.0 % 11.5-15.0 NEUTROPHILS (test code = 1008) 68.4 % LYMPHOCYTES (test code = 1010) 22.2 % MONOCYTES (test code = 1011) 7.2 % EOSINOPHILS (test code = 1012) 0.7 % BASOPHILS (test code = 1013) 0.5 % IMMATURE GRANULOCYTES (test code = 1036) 1.0 % NUCLEATED RBCS (test code = 1065) 0.0 /100 WBC'S See_Comment [Automated [employer]coma ge] The system which generated this result transmitted reference range: 0.0. The reference range was not used to interpret this result as normal/abnormal. PLATELET COUNT (test code = 1015) 273 K/UL 130-400 ABSOLUTE NEUTROPHILS (test code = 1066) 6.85 K/UL 1.50-7.50 ABSOLUTE LYMPHOCYTES (test code = 1067) 2.22 K/UL 1.00-4.00 ABSOLUTE MONOCYTES (test code = 1068) 0.72 K/UL 0.20-1.00 ABSOLUTE EOSINOPHILS (test code = 1040) 0.07 K/UL 0.00-0.50 ABSOLUTE BASOPHILS (test code = 1069) 0.05 K/UL 0.00-0.20 ABS IMMATURE GRANULOCYTES (test code = 1020) 0.10 K/UL 0.00-0.10 ABS NUCLEATED RBCS (test code = 38941) 0.00 K/UL 0.00-0.11 CBC W/AUTO [id number] 00:00:00* Test Item Value Reference Range Interpretation Comme nts WBC (test code = 1001) 10.0 K/UL RBC (test code = 1002) 5.13 M/UL HEMOGLOBIN (test code = 1003) 15.2 G/DL HEMATOCRIT (test code = 1004) 45.9 % MCV (test code = 1005) 89.5 fL MCH (test code = 1006) 29.6 PG MCHC (test code = 1007) 33.1 G/DL RDW (test code = 1038) 12.0 % NEUTROPHILS (test code = 1008) 68.4 % LYMPHOCYTES (test code = 1010) 22.2 % MONOCYTES (test code = 1011) 7.2 % EOSINOPHILS (test code = 1012) 0.7 % BASOPHILS (test code = 1013) 0.5 % IMMATURE GRANULOCYTES (test code = 1036) 1.0 % NUCLEATED RBCS (test code = 1065) 0.0 /100WBC'S PLATELET COUNT (test code = 1015) 273 K/UL ABSOLUTE NEUTROPHILS (test c ode = 1066) 6.85 K/UL ABSOLUTE LYMPHOCYTES (test c ode = 1067) 2.22 K/UL ABSOLUTE MONOCYTES (test cod e = 1068) 0.72 K/UL ABSOLUTE EOSINOPHILS (test c ode = 1040) 0.07 K/UL ABSOLUTE BASOPHILS (test cod e = 1069) 0.05 K/UL ABS IMMATURE GRANULOCYTES (t est code = 1020) 0.10 K/UL ABS NUCLEATED RBCS (test cod e = 76029) 0.00 K/UL Joey PaulaLIPID [id number] 00:00:00* Test Item Value Reference Range Interpretation Comme nts CHOLESTEROL (test code = 2210) 172 MG/DL TRIGLYCERIDES (test code = 2232) 86 MG/DL HDL CHOLESTEROL (test code = 2220) 31 MG/DL CALC LDL CHOL (test code = 2237) 122 MG/DL RISK RATIO LDL/HDL (test cod e = 2238) 3.94 RATIO Joey Elias ChaiCOMPREHENSIVE METABOLIC [id number] 00:00:00* Test Item Value Reference Range Interpretation Comme nts GLUCOSE (test code = 2217) 104 MG/DL BUN (test code = 2208) 17 MG/DL CREATININE (test code = 2214) 1.09 MG/DL eGFR (2020 CKD-EPI) (test co de = 41935) 81 ML/MIN/1.73 CALC BUN/CREAT (test code = 2235) 16 RATIO SODIUM (test code = 2231) 141 MEQ/L POTASSIUM (test code = 2228) 4.8 MEQ/L CHLORIDE (test code = 2215) 103 MEQ/L CARBON DIOXIDE (test code = 2206) 26 MEQ/L CALCIUM (test code = 2209) 9.2 MG/DL PROTEIN, TOTAL (test code = 2229) 7.2 G/DL ALBUMIN (test code = 2201) 4.7 G/DL CALC GLOBULIN (test code = 2240) 2.5 G/DL CALC A/G RATIO (test code = 2234) 1.9 RATIO BILIRUBIN, TOTAL (test code = 2207) 0.4 MG/DL ALKALINE PHOSPHATASE (test code = 2204) 74 U/L AST (test code = 2218) 22 U/L ALT (test code = 2219) 32 U/L Joey PaulaTSH, THIRD [id number] 00:00:00* Test Item Value Reference Range Interpretation Comme nts TSH, THIRD GENERATION (test code = 2821) 1.460 UIU/ML Joey [id number] 00:00:00* Test Item Value Reference Range Interpretation Comme nts TESTOSTERONE (test code = 2830) 315 NG/DL Joey PaulaCBC W/AUTO [id number] 00:00:00* Test Item Value Reference Range Interpretation Comme nts WBC (test code = 1001) 10.0 K/UL RBC (test code = 1002) 5.13 M/UL HEMOGLOBIN (test code = 1003) 15.2 G/DL HEMATOCRIT (test code = 1004) 45.9 % MCV (test code = 1005) 89.5 fL MCH (test code = 1006) 29.6 PG MCHC (test code = 1007) 33.1 G/DL RDW (test code = 1038) 12.0 % NEUTROPHILS (test code = 1008) 68.4 % LYMPHOCYTES (test code = 1010) 22.2 % MONOCYTES (test code = 1011) 7.2 % EOSINOPHILS (test code = 1012) 0.7 % BASOPHILS (test code = 1013) 0.5 % IMMATURE GRANULOCYTES (test code = 1036) 1.0 % NUCLEATED RBCS (test code = 1065) 0.0 /100WBC'S PLATELET COUNT (test code = 1015) 273 K/UL ABSOLUTE NEUTROPHILS (test c ode = 1066) 6.85 K/UL ABSOLUTE LYMPHOCYTES (test c ode = 1067) 2.22 K/UL ABSOLUTE MONOCYTES (test cod e = 1068) 0.72 K/UL ABSOLUTE EOSINOPHILS (test c ode = 1040) 0.07 K/UL ABSOLUTE BASOPHILS (test cod e = 1069) 0.05 K/UL ABS IMMATURE GRANULOCYTES (t est code = 1020) 0.10 K/UL ABS NUCLEATED RBCS (test cod e = 79247) 0.00 K/UL Joeydolly PaulaLIPID [id number] 00:00:00* Test Item Value Reference Range Interpretation Comme nts CHOLESTEROL (test code = 2210) 172 MG/DL TRIGLYCERIDES (test code = 2232) 86 MG/DL HDL CHOLESTEROL (test code = 2220) 31 MG/DL CALC LDL CHOL (test code = 2237) 122 MG/DL RISK RATIO LDL/HDL (test cod e = 2238) 3.94 RATIO Joey Elias ChaiCOMPREHENSIVE METABOLIC [id number] 00:00:00* Test Item Value Reference Range Interpretation Comme nts GLUCOSE (test code = 2217) 104 MG/DL BUN (test code = 2208) 17 MG/DL CREATININE (test code = 2214) 1.09 MG/DL eGFR (2020 CKD-EPI) (test co de = 04916) 81 ML/MIN/1.73 CALC BUN/CREAT (test code = 2235) 16 RATIO SODIUM (test code = 2231) 141 MEQ/L POTASSIUM (test code = 2228) 4.8 MEQ/L CHLORIDE (test code = 2215) 103 MEQ/L CARBON DIOXIDE (test code = 2206) 26 MEQ/L CALCIUM (test code = 2209) 9.2 MG/DL PROTEIN, TOTAL (test code = 2229) 7.2 G/DL ALBUMIN (test code = 2201) 4.7 G/DL CALC GLOBULIN (test code = 2240) 2.5 G/DL CALC A/G RATIO (test code = 2234) 1.9 RATIO BILIRUBIN, TOTAL (test code = 2207) 0.4 MG/DL ALKALINE PHOSPHATASE (test code = 2204) 74 U/L AST (test code = 2218) 22 U/L ALT (test code = 2219) 32 U/L Joey Vanessa, THIRD [id number] 00:00:00* Test Item Value Reference Range Interpretation Comme nts TSH, THIRD GENERATION (test code = 2821) 1.460 UIU/ML Joey [id number] 00:00:00* Test Item Value Reference Range Interpretation Comme nts TESTOSTERONE (test code = 2830) 315 NG/DL Joey PaulaSARS-COV-2 (COVID-19) BY RT-PCR [ADDED]2019-06-07 00:00:00* Test Item Value Reference Range Interpretation Comme nts SARS-COV-2 INTERPRETATION (t est code = 42042) Positive NASO/OROPHAR. SWAB (test cod e = 33569) Not applic NASOPHARYNGEAL SWAB (test co de = 64733) Not applic OROPHARYNGEAL SWAB (test cod e = 03319) Not applic SPUTUM (test code = 85265) Not applic OTHER SOURCE RESULT (test co de = 90801) Detected OTHER SOURCE LOCATION (test code = 66823) ESwab Joey PaulaSARS-COV-2 (COVID-19) BY RT-PCR [ADDED]2019-06-07 00:00:00* Test Item Value Reference Range Interpretation Comme nts SARS-COV-2 INTERPRETATION (t est code = 94098) Positive NASO/OROPHAR. SWAB (test cod e = 29011) Not applic NASOPHARYNGEAL SWAB (test co de = 96442) Not applic OROPHARYNGEAL SWAB (test cod e = 88289) Not applic SPUTUM (test code = 40660) Not applic OTHER SOURCE RESULT (test co de = 07752) Detected OTHER SOURCE LOCATION (test code = 46975) Ronijosh Paula
--- NOTE | 2024-04-15 19:24 | RAD REPORT ---
EXAMINATION: CT ABDOMEN AND PELVIS WITHOUT CONTRAST CLINICAL INDICATION: Male, 53 years old.left flank pain TECHNIQUE: CT abdomen and pelvis was performed, without IV contrast, as per department protocol. Axia l, sagittal and coronal reconstructions were obtained. One or more of the following dose reduction techniques were used: Automated exposure control, adjustment of the mA and/or kV according to the pat ient size, and/or iterative reconstruction. Unless otherwise specified, incidental findings do not require dedicated imaging follow-up. GI0094. IV CONTRAST: Not administered. COMPARISON: None FINDINGS: The lack of intravenous contrast limits the sensitivity of this exam for evaluation of solid visceral organs, vascular structures, and retroperitoneum. LOWER CHEST: No acute process identified.No significant pericardial effusion. 3 mm left lower lobe no dule on image 15, series 201. 2017 Fleischner Society Recommendations for Lung Nodule(s): Follow-Up based on size (average of long- and short-axis diameters). Use most suspicious nodule for followup. S pawel solid low-risk nodule 0-5 mm: No routine follow-up imaging is recommended in low-risk and high-risk patients. These guidelines do not apply to patients younger than 35 years, immunocompromis ed patients, and patients with cancer. F/u in patients with significant comorbidities as clinically warranted. For lung cancer screening, adhere to Lung-RADS guidelines. Reference: Radiology. 2017 Ju l; 284(1):228-243 UPPER GI: No significant abnormality. LIVER: Hepatic steatosis, but otherwise unremarkable. GALLBLADDER/BILE DUCTS: No biliary ductal dilatation.? PANCREAS: No mass, ductal dilation, or adonay-pancreatic fluid. SPLEEN: Unremarkable. ADRENALS: No adrenal masses. KIDNEYS AND URETERS: No hydronephrosis.Low density and/or too small to characterize renal lesions whi ch are statistically benign. ABDOMINAL AORTA AND OTHER VESSELS: Normal caliber aorta and IVC. PERITONEUM: No abnormal free fluid. No free air. LYMPH NODES: No pathologic lymphadenopathy. ABDOMINAL WALL: Unremarkable SMALL BOWEL/COLON: Small bowel has normal course and caliber. No colonic wall thickening or pericolon ic inflammatory changes.Normal appendix. URINARY BLADDER: Underdistended but grossly unremarkable. REPRODUCTIVE ORGANS: No pathologic process. MUSCULOSKELETAL: Mild degenerative changes are present at L4-5. ADDITIONAL FINDINGS: None. IMPRESSION: No acute or significant abnormalities in the abdomen or pelvis, with evaluation limited by lack of IV contrast. No urinary tract calculi.
--- NOTE | 2024-04-15 20:02 | EDPHYS ---
Physician Documentation [facility] Name: Rodolfo Gomez Age: 53 yrs Sex: Male : 1970 Arrival Date: 04/15/2024 Time: 18:27 Bed 23 Private MD: ED Physician Kan Orozco HPI: 04/15 18:39 This 53 yrs old Male presents to ER via Unassigned with complaints of Flank rn Pain. 18:39 The patient complains of pain in the left mid back. The pain radiates to the abdomen rn and left leg. Onset: The symptoms/episode began/occurred 2 day(s) ago. Modifying factors: The symptoms are alleviated by nothing. the symptoms are aggravated by movement. Associated signs and symptoms: Pertinent negatives: dysuria, urinary frequency, hematuria. Severity of pain: At its worst the pain was moderate in the emergency department the pain is unchanged. The patient has experienced similar episodes in the past. The patient has not recently seen a physician. Pt reports left flank pain that began 2 days ago, was working hard outside, no injury or trauma. Has had both kidney stones and pinched nerve before. No bowel or bladder issues. No fever. No vomiting. . Historical: - Allergies: 20:46 No Known Drug Allergies; jb4 - PMHx: 20:46 Asthma; Back pain (Tonsillectomy); jb4 - PSHx: 20:46 Tonsillectomy; jb4 - Immunization history:: Adult Immunizations up to date. - Infectious Disease History:: Denies. - Family history:: not pertinent. - Social history:: Smoking status: Patient denies any tobacco usage or history of. - Hospitalizations: : No recent hospitalization is reported. ROS: 18:39 Constitutional: Negative for fever, chills, and weight loss, Cardiovascular: Negative rn for chest pain, palpitations, and edema, Respiratory: Negative for shortness of breath, cough, wheezing, and pleuritic chest pain, Abdomen/GI: + left flank pain and left abd pain Back: + left back pain MS/Extremity: Negative for injury and deformity, Skin: Negative for injury, rash, and discoloration, Neuro: Negative for headache, weakness, numbness, tingling, and seizure, Exam: 18:39 Constitutional: This is a well developed, well nourished patient who is awake, alert, rn and in no acute distress. Ambulatory to room without assistance. Cardiovascular: Regular rate and rhythm. No pulse deficits. Abdomen/GI: soft, + llq tenderness Back: No spinal tenderness. No costovertebral tenderness. Pain with ROM Neuro: Awake and alert, GCS 15, oriented to person, place, time, and situation. Motor strength 5/5 in all extremities. Sensory grossly intact. Antalgic gait. Vital Signs: 20:45 BP 119 / 69; Pulse 66; Resp 16; Pulse Ox 99% ; Weight 99.79 kg (R); Height 5 ft. 10 in. jb4 ; 20:45 Body Mass Index 31.57 (99.79 kg, 177.8 cm) jb4 MDM: 18:34 Medical Screening Exam initiated rn 19:28 Differential diagnosis: nephrolithiasis, Radiculopathy, back pain. Data reviewed: vital rn signs, nurses notes, radiologic studies, CT scan, and as a result, I will discharge patient. Counseling: I had a detailed discussion with the patient and/or guardian regarding the historical points, exam findings, and any diagnostic results supporting the discharge/admit diagnosis, radiology results, the need for outpatient follow up, to return to the emergency department if symptoms worsen or persist or if there are any questions or concerns that arise at home. 20:02 Response to treatment: the patient's symptoms have mildly improved after treatment, and rn as a result, I will discharge patient. Special discussion: I discussed with the patient/guardian in detail that at this point there is no indication for admission to the hospital. It is understood, however, that if the symptoms persist or worsen the patient needs to return immediately for re-evaluation. 04/15 18:38 Order name: CT Stone Protocol; Complete Time: 19:25 rn 04/15 19:37 Order name: IV Saline Lock; Complete Time: 20:36 kmf Administered Medications: 20:47 Drug: morphine IVP or IV 4 mg IVP once over 4 mins Route: IVP; Infused Over: 4 mins; jb4 Site: right hand; 21:03 Follow up: Response: No adverse reaction; Marked relief of symptoms jb4 20:47 Drug: Ketorolac IVP 15 mg IVP once Route: IVP; Site: right hand; jb4 21:03 Follow up: Response: No adverse reaction; Marked relief of symptoms jb4 20:47 Drug: Ondansetron IVP 4 mg IVP once; over 2 minutes Route: IVP; Site: right hand; jb4 21:03 Follow up: Response: No adverse reaction; Marked relief of symptoms jb4 20:47 Drug: Decadron - Dexamethasone IVP 10 mg IVP once Route: IVP; Site: right hand; jb4 21:03 Follow up: Response: No adverse reaction; Marked relief of symptoms jb4 Disposition Summary: 04/15/24 20:02 Discharge Ordered Notes: Location: Home rn Problem: new rn Symptoms: have improved rn Condition: Stable rn Diagnosis - Intervertebral disc disorders with radiculopathy, lumbar region rn Followup: rn - With: Private Physician - When: As needed - Reason: Recheck today's complaints, Re-evaluation by your physician Discharge Instructions: - Discharge Summary Sheet rn - Lumbosacral Radiculopathy rn Forms: - Medication Reconciliation Form rn - Antibiotic director external communications - Prescription Opioid Use rn - Patient Portal Instructions rn - Leadership Thank You Letter rn Prescriptions: - gabapentin 100 mg Oral capsule - take 1 capsule ORAL route every 12 hours As needed; 14 capsule; Refills: 0, rn Product Selection Permitted - Cyclobenzaprine 10 mg Oral tablet - take 1 tablet ORAL route every 8-12 hours As needed; 14 tablet; Refills: 0, rn Product Selection Permitted - Medrol (Zak) 4 mg Oral Tablets, Dose Pack - take 1 tablet ORAL route as directed - follow package instructions; 1 packet; rn Refills: 0, Product Selection Permitted Signatures: Dispatcher [employer] EDKan Cervantes MD MD rn Bryson, James, RN RN jb4 Lisa Galan Corrections: (The following items were deleted from the chart) 19:34 18:39 Urinalysis+U.LAB.BRZ ordered. EDMS EDMS 19:35 18:39 COMPREHENSIVE METABOLIC PANEL+C.LAB.BRZ ordered. EDMS EDMS 19:36 18:38 IV Saline Lock ordered. rn lynette 19:37 18:38 Labs collected and sent ordered. mani ojeda
--- NOTE | 2024-04-15 20:02 | ER ---
Nurse's Notes [facility] Name: Rodolfo Gomez Age: 53 yrs Sex: Male : 1970 Arrival Date: 04/15/2024 Time: 18:27 Bed 23 Private MD: Diagnosis: Intervertebral disc disorders with radiculopathy, lumbar region Presentation: 04/15 20:45 Chief complaint: Patient states: I am have left side pain that radiates down my leg. jb4 Coronavirus screen: At this time, the client does not indicate any symptoms associated with coronavirus-19. Ebola Screen: No symptoms or risks identified at this time. Initial Sepsis Screen: Does the patient meet any 2 criteria? No. Patient's initial sepsis screen is negative. Does the patient have a suspected source of infection? No. Patient's initial sepsis screen is negative. Risk Assessment: Do you want to hurt yourself or someone else? Patient reports no desire to harm self or others. Onset of symptoms was April 15, 2024. Transition of care: patient was not received from another setting of care. 20:45 Method Of Arrival: Ambulatory jb4 20:45 Acuity: VANDANA 4 jb4 Triage Assessment: 20:46 General: Appears in no apparent distress. comfortable, Behavior is calm, cooperative, jb4 appropriate for age. Pain: Complains of pain in left leg Pain does not radiate. Pain currently is 8 out of 10 on a pain scale. Neuro: Level of Consciousness is awake, alert, obeys commands, Oriented to person, place, time, situation. Cardiovascular: Patient's skin is warm and dry. Respiratory: Airway is patent Respiratory effort is even, unlabored, Respiratory pattern is regular, symmetrical. Derm: Skin is intact, Skin is pink, warm \T\ dry. Musculoskeletal: Circulation, motion, and sensation intact. Range of motion: intact in all extremities. Historical: - Allergies: 20:46 No Known Drug Allergies; jb4 - PMHx: 20:46 Asthma; Back pain (Tonsillectomy); jb4 - PSHx: 20:46 Tonsillectomy; jb4 - Immunization history:: Adult Immunizations up to date. - Infectious Disease History:: Denies. - Family history:: not pertinent. - Social history:: Smoking status: Patient denies any tobacco usage or history of. - Hospitalizations: : No recent hospitalization is reported. Screenin:48 [facility] ED Fall Risk Assessment (Adult) History of falling in the last 3 months, jb4 including since admission No falls in past 3 months (0 pts) Confusion or Disorientation No (0 pts) Intoxicated or Sedated No (0 pts) Impaired Gait No (0 pts) Mobility Assist Device Used No (0 pt) Altered Elimination No (0 pt) Score/Fall Risk Level 0 - 2 = Low Risk Oriented to surroundings, Maintained a safe environment. Abuse screen: Denies threats or abuse. Nutritional screening: No deficits noted. Tuberculosis screening: No symptoms or risk factors identified. Assessment: 20:48 Reassessment: d/c pending ride home. jb4 Vital Signs: 20:45 BP 119 / 69; Pulse 66; Resp 16; Pulse Ox 99% ; Weight 99.79 kg (R); Height 5 ft. 10 in. jb4 ; 20:45 Body Mass Index 31.57 (99.79 kg, 177.8 cm) jb4 ED Course: 18:32 Patient arrived in ED. ra3 18:34 Kan Orozco MD is Attending Physician. rn 18:50 Patient's name was called from ROD yin. No response. aa5 18:59 CT Stone Protocol In Process Unspecified. EDMS 20:40 No provider procedures requiring assistance completed. Inserted saline lock: 22 gauge jb4 in right hand, using aseptic technique. 20:46 Triage completed. jb4 20:46 Arm band placed on right wrist. jb4 20:48 Patient has correct armband on for positive identification. Bed in low position. Call jb4 light in reach. Side rails up X 1. Provided Education on: plan of care. 21:04 IV discontinued, intact, bleeding controlled, No redness/swelling at site. Pressure jb4 dressing applied. Administered Medications: 20:47 Drug: morphine IVP or IV 4 mg IVP once over 4 mins Route: IVP; Infused Over: 4 mins; jb4 Site: right hand; 21:03 Follow up: Response: No adverse reaction; Marked relief of symptoms jb4 20:47 Drug: Ketorolac IVP 15 mg IVP once Route: IVP; Site: right hand; jb4 21:03 Follow up: Response: No adverse reaction; Marked relief of symptoms jb4 20:47 Drug: Ondansetron IVP 4 mg IVP once; over 2 minutes Route: IVP; Site: right hand; jb4 21:03 Follow up: Response: No adverse reaction; Marked relief of symptoms jb4 20:47 Drug: Decadron - Dexamethasone IVP 10 mg IVP once Route: IVP; Site: right hand; jb4 21:03 Follow up: Response: No adverse reaction; Marked relief of symptoms jb4 Medication: 20:48 VIS not applicable for this client. jb4 Outcome: 20:02 Discharge ordered by . rn 21:03 Patient left the ED. jb4 21:03 Discharged to home via wheelchair, with friend, jb4 21:03 Condition: stable 21:03 Discharge instructions given to patient, Instructed on discharge instructions, follow up and referral plans. no drinking with medication, no driving heavy equipment, medication usage, Demonstrated understanding of instructions, follow-up care, medications, Prescriptions given X 3, Signatures: Dispatcher [employer] EDMS Kan Orozco MD MD rn Calderon, Audri RN RN aa5 Storm Duran RN RN jb4 Adrienne Murillo 3
[2024-04-15] MEDS ORDERED: ONDANSETRON 4 MG/2 ML VIAL ONE (20:39)
[2024-04-15] MEDS ORDERED: dexAMETHasone 10 MG/ML VIAL ONE (20:39)
[2024-04-15] MEDS ORDERED: MORPHINE 4 MG/ML SYR ONE (20:39)
[2024-04-15] MEDS ORDERED: KETOROLAC 30 MG/ML INJ ONE (20:39)
[2024-04-16 01:42] VITALS: BP 119/69; O2SAT 99
== END 2024-04-15 21:03 | disposition home or self-care (01) ==
LOC: ER 18:27
DX: M51.16 Intervertebral disc disorders with radiculopathy, lumbar region (principal)
CPT/HCPCS: 76377; 74176; J1100; J2405; 96374; 96375; 99284